=== PATIENT | male | born 1965 | race Caucasian/White ===

== ENCOUNTER → 2018-02-25 13:59 | Outpatient (CLI) | payer BC, SELFPAY ==
--- NOTE | 2018-02-25 14:29 | RAD_ITS ---
STUDY: X-RAY CHEST REASON FOR EXAM: Male, 53 years old. Chest pain TECHNIQUE: Frontal and lateral views of the chest were obtained. COMPARISON: May 21, 2016 FINDINGS: The lungs are underaerated. There are no focal airspace opacities. There is no demonstrated pleural abnormality. The cardiac silhouette is normal in size. There are surgical clips in the mediastinum. Sternotomy wires are present. Normal visualized pulmonary arteries. Normal visualized aortic arch and descending thoracic aorta. There are diffuse degenerative changes of the visualized spine. The visualized ribs, clavicles, and shoulders are unremarkable. There is no demonstrated abnormality of the visualized upper abdomen. RAD/Chest PA and Lateral IMPRESSION: No acute cardiopulmonary abnormalities or changes. Electronically Signed: Melinda Jaffe MD at 17:59 EDT Tel Direct: [phone], Service support ,
[2018-02-25 14:42] LABS: Absolute Lymphocyte Count 2.21 X10^3/ul (0.83-4.51); Absolute Neutrophil Count 2.5 X10^3/uL (2.0-7.7); Basophil# 0.04 X10^3/uL; Basophil% 0.8 % (0-1); Eosinophil# 0.13 X10^3/uL; Eosinophils% 2.4 % (0-5); Hematocrit 44.4 % (40-54); Hemoglobin 15.6 g/dl (13.0-16.5); Lymphocyte # 2.21 X10^3/ul (4.0); Lymphocyte % 41.5 % (19-41); Mean Corp Hgb Conc 35.1 g/gl (32-36); Mean Corpuscular Hgb 31.6 pg (27.0-32.0); Mean Corpuscular Volume 90.1 fL (80-94); Mean Platelet Vol. 9.8 fl (6.2-12.0); Monocyte# 0.48 X10^3/uL; Neutrophil # 2.47 X10^3/uL (2.7-7.7); Neutrophil % 46.3 % (47-70); POSITIVE COUNT NO; POSITIVE DIFFERENTIAL NO; POSITIVE MORPHOLOGY NO; Platelet Count 235 K/mm3 (150-450); RBC Distribution Width CV 12.9 % (11.6-14.6); RBC Distribution Width SD 41.9 fl (35.1-43.9); Red Blood Count 4.93 M/mm3 (4.6-6.2); White Blood Count 5.3 K/mm3 (4.4-11.0)
[2018-02-25 14:50] LABS: International Normalized Ratio 0.9; Partial Thromboplast Time 30.4 Seconds (24.1-36.2); Prothrombin Time (Protime)PT. 12.6 SECONDS (11.7-14.9)
[2018-02-25 14:58] LABS: Anion Gap 9 (5-15); BUN 17 mg/dL (7-18); BUN/Creat Ratio 15.5 RATIO (10-20); Calcium,Total 8.6 mg/dL (8.5-10.1); Chloride 104 mmol/L (98-107); EST Glomerular Filtration Rate 74 mL/min (>60); Est Glom Filt Rate - Afr Amer 90 mL/min (>60); Glucose 117 mg/dL (74-106); Potassium 3.5 mmol/L (3.5-5.1); Sodium Level 141 mmol/L (136-145)
--- NOTE | 2018-02-28 10:39 | CL.I_ITS ---
Patient Name: GALO JAMES Study Date: 02/28/2018 Performing: Jeremías Castillo MD Ht: 70 inches 177.8 cm : 1965 Wt: 203.3 lbs 92.079 kg Age: 53 Gender: male BSA: 2.1 PROCEDURE(S) PERFORMED CH93-RUU/COR/LV/CABG UN51-NUH W OR WO PTCA, SINGLE CORONARY ARTERY CLINICAL PROFILE AND CO-MORBIDITIES Indications: Stable Known CAD, Abnormal stress test, Dyspnea on exertion. Heart Failure: None Stress/Imaging Stress Echocardiogram: Yes Result: Positive Intermediate Risk Stress Echocardiogra m: Positive Intermediate Risk Angina Classification Anginal Classification w/in 2 Weeks: No symptoms CAD Presentations: Other: Dyspnea. Comorbidities/Risk Factors: Hypertension Dyslipidemia Prior CABG CONCLUSIONS Triple vessel CAD of the LAD, LCX, OMS, RCA Critical lesion in mid LCX that is supplying OM#1 and OM#2 via bridging radial artery. Widely patent sequential VILLATORO to LAD and DIAG. Widely patent BEBETO To PDA. Successful PTCA/DEISI of the mid LCX with a 3.0 x 12 Promus Synergy, post dilated to 3.75 mm with NC ba lloon; 85%-->0%, no dissection. RECOMMENDATIONS Referred for immediate PCI of mid LCX. Highly recommend quitting all tobacco products Follow up with primary frame assembler Risk factor modification ASA Indefinitley Plavix for at least 12 months Routine post interventional care Refer for Outpatient Cardiac Rehab Manual sheath removal per protocol Follow up with Dr. Casitllo DESCRIPTION OF PROCEDURE The patient arrived to the procedure lab. The risks and benefits of the procedure as well as a full d escription of our services here and lack of surgical backup were fully explained to the patient and/o r their significant other prior to the catheterization. The Timeout was completed, verifying the jayce ect patient and procedure. The patient's procedural site was prepped and draped in the usual fashion. Local anesthetic was given subcutaneously to right groin region with Lidocaine 2%. Using a modified Seldinger technique, arterial access was obtained via the right femoral artery, a 4Fr sheath was inse rted. Left Coronary Artery selective angiography was performed in multiple views using a 4 Fr. JL5 c atheter. Left internal mammary artery graft to the LAD selective angiography was performed in multipl e views using a 4 Fr. 3DRC catheter. Left internal mammary artery graft to the DIAG 1 selective angio graphy was performed in multiple views using a 4 Fr. 3DRC catheter. Right Coronary Artery selective a ngiography was then performed in multiple views using a 4 Fr. 3DRC catheter. Right internal mammary a rtery graft to the RPDA selective angiography was performed in multiple views using a 4 Fr. 3DRC cath eter. Saphenous Vein graft to the Circumflex selective angiography was performed in multiple views us ing a 4 Fr. AR MOD 2 catheter. Left Ventriculography was performed in BARKER projection using a 4 Fr. Pi gtail catheter. LV to AO pullback pressures were then recordedThe images were reviewed and options di scussed. A decision was then made to proceed with an Intervention, IVUS or other adjunct procedure. Arterial sheath was exchanged for a 6 Fr Sheath 3.5 EBU Guide catheter was inserted and engaged into the LCA. BMW Guide wire was advanced to the Circumflex. Guide wire was advanced to the 1st OM. 2X8 EM ERGE Balloon catheter was inserted. Balloon catheter was advanced across lesion in the circumflex, mi d. PTCA balloon inflated at 10 atms for 15 secs PTCA balloon inflated at 12 atms for 10 secs PTCA bal loon inflated at 12 atms for 8 secs Angiogram performed post balloon dilatation. PTCA balloon inflate d at 12 atms for 9 secs 3x12 synergy Drug Eluting stent was inserted Drug Eluting stent was advanced across the lesion in the circumflex, mid. Angiogram performed post stent deployment. 3.5x 8 NC Emerge Balloon catheter was inserted. 3.75x 8 NC emerge Balloon catheter was inserted. Balloon catheter was inserted post stent. PTCA balloon inflated at 16 atms for 12 secs PTCA balloon inflated at 12 atms f or 5 secs Angiogram performed post balloon dilatation.. . The arterial sheath was sutured in place a nd capped. CORONARY ANGIOGRAPHY DOMINANCE: Right Dominant LEFT HEART ASSESSMENT Left Ventricular Ejection Fraction: by LV Gram 65 % Normal Left Ventricular systolic function Normal Left Ventricular End Diastolic Pressure Normal LV wall motion LEFT MAIN: No significant disease noted LEFT ANTERIOR DECENDING ARTERY: MID LAD: is occluded DIAGONAL 1: Ostial - 70 % Stenosis CIRCUMFLEX ARTERY: MID CIRC: 85 % Stenosis RIGHT CORONARY ARTERY: MID RCA: is occluded GRAFTS: VILLATORO graft to the 2nd Diagonal and LAD(sequential) is patent Sequential radial graft to the 1st OM and OM#2 has a proximal anastomotic lesion of 99 %, but a paten t bridge anastomosis b/w OM#1 and OM#2. BEBETO graft to the RPDA is patent INTERVENTION INFORMATION LESION SITE: Circumflex (Mid) Lesion Complexity: Non-High/Non-C, lesion at bifurcation: Yes, thrombus present: No, lesion length: 1 2 mm, culprit lesion: Yes Pre Stenosis: 85 % Pre intervention BETTY flow: 3 PROCEDURE: Drug Eluting Stent with pre and post dilatation Post Stenosis: 0 % Post intervention BETTY flow: 3 Lesion Devices: Peña .014 BMW Delmar Straight 190cm Medtronic 6 Fr EBU3.5 100cm Guide Catheter Say Sci EMERGE MR 2.00x08 BALLOON Say Sci Synergy MR DEISI 3.00x12 Say Sci NC EMERGE MR 3.50x08 BALLOON Say Sci NC EMERGE MR 3.75x08 BALLOON COMPLICATIONS No Complications PROCEDURE MEDICATIONS Oxygen: 2 L/min via nasal cannula Atropine 1mg/10ml 0.5 amp @ 02/28/2018 09:50:38 Heparin 6000 unit(s) IV 02/28/2018 09:52:36 Nitro 200 mcg IC 02/28/2018 09:58:59 Nitro 200 mcg IC 02/28/2018 09:58:59 IV Fluids: .9 NaCl increased to WO ml/hr 02/28/2018 09:51:44 SUMMARY OF HEMODYNAMIC DATA Time AIR REST ECG 07:13:44 AO 163/95 (123) SA 09:32:42 LV 93/-9, 6 09:48:33 LV 92/-12, 7 09:48:41 LVp 98/-16, 5 09:48:56 AOp 92/51 (69) 09:49:01 Signed By Jeremías Castillo MD On 02/28/2018 10:38:40 Jeremías Castillo MD
== END ==
PROVIDERS: Visit Provider Internal Medicine Cardiovascular Disease
DX: I25.110 Atherosclerotic heart disease of native coronary artery with unstable angina pectoris (principal); Z95.1 Presence of aortocoronary bypass graft; E78.5 Hyperlipidemia, unspecified; I10 Essential (primary) hypertension; R07.9 Chest pain, unspecified
CPT/HCPCS: 36415; 71046; 80048; 85025; 85610; 85730

== ENCOUNTER 2018-02-28 06:55 | Day surgery (SDC) | payer BC, SELFPAY ==
[2018-02-27 07:34] VITALS: BMI 30.1
[2018-02-28] VITALS (18 sets, daily range): BP systolic 130–158; BP diastolic 89–104; PULSE 62–93; RESP 10–24; TEMP 36.2; O2SAT 95–99; BMI 29.7
[2018-02-28 10:31] LABS: ACT Activated Clotting Time 175 sec (74-137)
[2018-02-28] MEDS: 0.9% Normal Saline 1,000 ML 150 ML IV (11:03)
[2018-02-28 11:23] LABS: CPK Total, Creatine Kinase 248 U/L (39-308)
[2018-02-28 11:42] LABS: Hematocrit 42.2 % (40-54); Mean Corp Hgb Conc 35.5 g/gl (32-36); Mean Corpuscular Hgb 31.6 pg (27.0-32.0); Mean Platelet Vol. 9.7 fl (6.2-12.0); Platelet Count 216 K/mm3 (150-450); RBC Distribution Width CV 12.5 % (11.6-14.6); RBC Distribution Width SD 40.3 fl (35.1-43.9); Red Blood Count 4.74 M/mm3 (4.6-6.2); Scan Indicated on CBC? Y/N NO; White Blood Count 4.9 K/mm3 (4.4-11.0)
[2018-02-28] MEDS: Atropine Sulfate 1 MG/10 ML Syringe 0.5 MG IV (12:46)
[2018-02-28] MEDS: 0.9% NaCl Peripheral Flush Adult/Peds IV (12:46)
[2018-02-28 12:50] LABS: ACT Activated Clotting Time 125 sec (74-137)
--- NOTE | 2018-02-28 13:10 | CRPHASE1 ---
Patient Data/Charges Phase II Referral:: [facility] Start Phase II:: FOLLOWING CARDIOLOGY OFFICE VISIT Risk Factors/Lifestyle Hx Hypertension: Yes Hx Metabolic Disorders: Yes Hx Dyslipidemia: Yes Hx Obesity: No Height: 5 ft 10 in Stress: Home/Family Risk Factor for Sedentary Lifestyle: Moderate Risk Past Cardiac Illness: Coronary Artery Bypass Graft Phase I Education Given On:: [place], Nutrition, Antiplatelet medication Issues Affecting Care:: None Knowledge of Condition:: Yes Learning Preferences: Verbal Hospital Course Presenting Symptoms:: UNSTABLE ANGINA Medical/Surgical History MT:: No Angina:: Yes - UNSTABLE ANGINA Hypertension:: Yes Dyslipidemia:: Yes CABG: Yes Discharge/Home/Social Eval Discharge Disposition: Home
--- NOTE | 2018-02-28 13:13 | CRPHASE1_ITS ---
Patient Data/Charges Phase II Referral:: [facility] Start Phase II:: FOLLOWING CARDIOLOGY OFFICE VISIT Risk Factors/Lifestyle Hx Hypertension: Yes Hx Metabolic Disorders: Yes Hx Dyslipidemia: Yes Hx Obesity: No Height: 5 ft 10 in Stress: Home/Family Risk Factor for Sedentary Lifestyle: Moderate Risk Past Cardiac Illness: Coronary Artery Bypass Graft Phase I Education Given On:: [place], Nutrition, Antiplatelet medication Issues Affecting Care:: None Knowledge of Condition:: Yes Learning Preferences: Verbal Hospital Course Presenting Symptoms:: UNSTABLE ANGINA Medical/Surgical History NE:: No Angina:: Yes - UNSTABLE ANGINA Hypertension:: Yes Dyslipidemia:: Yes CABG: Yes Discharge/Home/Social Eval Discharge Disposition: Home
--- NOTE | 2018-02-28 13:13 | CRPH1.INSTRU ---
General Education CAD and cardiac anatomy and function:: Patient communicates acknowledgment Explanation of diagnoses and procedures:: Patient communicates acknowledgment Sign/Symptoms of [place]:: Patient communicates acknowledgment Antiplatelet therapy: Patient communicates acknowledgment Proper use of NTG-SL: Patient communicates acknowledgment Emergency procedures and activation of EMS: Patient communicates acknowledgment Compliance of all prescribed medications: Patient communicates acknowledgment Dyslipidemia Patient Dyslipidemia Risk Factors Are:: Total Cholesterol Recommendations Include:: Lipid profile not available, Reviewed NCEP/ATP guidelines, Therapeutic Lifestyle Change dietary guidelines Dyslipidemia Response Code:: Patient communicates acknowledgment Overweight/Obesity Patient Overweight/Obesity Risk Factors Are:: Overweight = 26-29 Recommendations Include:: Weight loss of 5-10%, Reduced calorie diet, Exercise 5-7 times/week Overweight/Obesity:: Patient communicates acknowledgment Hypertension Recommendations Include:: Maintain BP <130/85, DASH dietary guidelines, Decrease/maintain normal body weight, Moderation of ETOH Hypertension:: Patient communicates acknowledgment Heart Disease Patient Heart Disease Risk Factors Are:: Previous cardiac event Heart Disease Response Code:: Patient communicates acknowledgment Diabetes Patient Diabetes Risk Factors Are:: No documented hx of diabetes Metabolic Syndrome Patient Metabolic Syndrome Risk Factors Are [3 of 5]:: High triglyceride >150, Hypertension, Low HDL <40 [male] or < 50 [female] Recommendations Include:: Reinforce compliance to risk factor modifications, Encouraged follow-up with Primary Care Physician Metabolic Syndrome Response Code:: Patient communicates acknowledgment Sedentary Patient Sedentary Risk Factors Are:: Lack of regular exercise Recommendations Include:: Aerobic exercise 5-7 times/week for 20-30 minutes continuously, Benefits of regular exercise, Discussed home walking program, Monitored Outpatient Cardiac Rehab Sedentary Response Code:: Patient communicates acknowledgment Stress Recommendations Include:: Identification of stressors, and assessment of coping skills, Stress management techniques Stress Response Code:: Patient communicates acknowledgment
--- NOTE | 2018-02-28 13:16 | CRPH1.INST_ITS ---
General Education CAD and cardiac anatomy and function:: Patient communicates acknowledgment Explanation of diagnoses and procedures:: Patient communicates acknowledgment Sign/Symptoms of [place]:: Patient communicates acknowledgment Antiplatelet therapy: Patient communicates acknowledgment Proper use of NTG-SL: Patient communicates acknowledgment Emergency procedures and activation of EMS: Patient communicates acknowledgment Compliance of all prescribed medications: Patient communicates acknowledgment Dyslipidemia Patient Dyslipidemia Risk Factors Are:: Total Cholesterol Recommendations Include:: Lipid profile not available, Reviewed NCEP/ATP guidelines, Therapeutic Lifestyle Change dietary guidelines Dyslipidemia Response Code:: Patient communicates acknowledgment Overweight/Obesity Patient Overweight/Obesity Risk Factors Are:: Overweight = 26-29 Recommendations Include:: Weight loss of 5-10%, Reduced calorie diet, Exercise 5 -7 times/week Overweight/Obesity:: Patient communicates acknowledgment Hypertension Recommendations Include:: Maintain BP <130/85, DASH dietary guidelines, Decrease /maintain normal body weight, Moderation of ETOH Hypertension:: Patient communicates acknowledgment Heart Disease Patient Heart Disease Risk Factors Are:: Previous cardiac event Heart Disease Response Code:: Patient communicates acknowledgment Diabetes Patient Diabetes Risk Factors Are:: No documented hx of diabetes Metabolic Syndrome Patient Metabolic Syndrome Risk Factors Are [3 of 5]:: High triglyceride >150, Hypertension, Low HDL <40 [male] or < 50 [female] Recommendations Include:: Reinforce compliance to risk factor modifications, Encouraged follow-up with Primary Care Physician Metabolic Syndrome Response Code:: Patient communicates acknowledgment Sedentary Patient Sedentary Risk Factors Are:: Lack of regular exercise Recommendations Include:: Aerobic exercise 5-7 times/week for 20-30 minutes continuously, Benefits of regular exercise, Discussed home walking program, Monitored Outpatient Cardiac Rehab Sedentary Response Code:: Patient communicates acknowledgment Stress Recommendations Include:: Identification of stressors, and assessment of coping skills, Stress management techniques Stress Response Code:: Patient communicates acknowledgment
[2018-02-28 14:47] LABS: M R Staph aureus DNA By PCR Negative (Negative); Probe Check PASS; Specimen Processing Control PASS
[2018-02-28 17:16] LABS: Hematocrit 43.5 % (40-54); Hemoglobin 15.8 g/dl (13.0-16.5); Mean Corp Hgb Conc 36.3 g/gl (32-36); Mean Corpuscular Hgb 32.3 pg (27.0-32.0); Mean Platelet Vol. 9.8 fl (6.2-12.0); Platelet Count 229 K/mm3 (150-450); RBC Distribution Width CV 12.6 % (11.6-14.6); RBC Distribution Width SD 40.7 fl (35.1-43.9); Red Blood Count 4.89 M/mm3 (4.6-6.2); White Blood Count 6.1 K/mm3 (4.4-11.0)
[2018-02-28 17:17] LABS: Scan Indicated on CBC? Y/N NO
[2018-02-28 17:21] LABS: CPK Total, Creatine Kinase 210 U/L (39-308)
[2018-02-28 23:08] LABS: Hematocrit 42.3 % (40-54); Mean Corp Hgb Conc 35.5 g/gl (32-36); Mean Corpuscular Hgb 31.9 pg (27.0-32.0); Mean Platelet Vol. 10.2 fl (6.2-12.0); Platelet Count 242 K/mm3 (150-450); RBC Distribution Width SD 41.6 fl (35.1-43.9); White Blood Count 6.5 K/mm3 (4.4-11.0)
[2018-02-28 23:09] LABS: Scan Indicated on CBC? Y/N NO
[2018-03-01] VITALS (12 sets, daily range): BP systolic 136–167; BP diastolic 87–101; PULSE 58–81; RESP 12–20; TEMP 36.3–36.7; O2SAT 96–98
[2018-03-01 00:13] LABS: CPK Total, Creatine Kinase 193 U/L (39-308)
[2018-03-01] MEDS: 0.9% NaCl Peripheral Flush Adult/Peds IV (05:28)
[2018-03-01 05:54] LABS: Anion Gap 9 (5-15); BUN 15 mg/dL (7-18); Calcium,Total 8.4 mg/dL (8.5-10.1); Chloride 108 mmol/L (98-107); Cholesterol 154 mg/dL (200); EST Glomerular Filtration Rate 83 mL/min (>60); Est Glom Filt Rate - Afr Amer 101 mL/min (>60); Estimated Creatinine Clearance 88.21 ml/min; Glucose 118 mg/dL (74-106); High Density Lipoprotein 45 mg/dL; Potassium 3.9 mmol/L (3.5-5.1); Sodium Level 142 mmol/L (136-145); Triglycerides 81 mg/dL; Very Low Density Lipoprotein 16 mg/dL (5-40)
--- NOTE | 2018-03-01 05:55 | EKG12_ITS ---
Test Reason : POST PCI Blood Pressure : / mmHG Vent. Rate : 071 BPM Atrial Rate : 071 BPM P-R Int : 178 ms QRS Dur : 090 ms QT Int : 422 ms P-R-T Axes : 048 003 011 degrees QTc Int : 458 ms Normal sinus rhythm Confirmed by ISABELLA EDWARDS, MIKI ([id number]), communications editor TOMASA LEVY ([id number]) on 03/06/2018 1:54:49 PM Referred By: Jeremías Castillo Confirmed By:MIKI MASON MD
[2018-03-01 06:26] LABS: Hematocrit 44.8 % (40-54); Hemoglobin 16.1 g/dl (13.0-16.5); Mean Corp Hgb Conc 35.9 g/gl (32-36); Mean Corpuscular Hgb 32.2 pg (27.0-32.0); Mean Corpuscular Volume 89.6 fL (80-94); Mean Platelet Vol. 10.3 fl (6.2-12.0); Platelet Count 234 K/mm3 (150-450); RBC Distribution Width CV 12.7 % (11.6-14.6); RBC Distribution Width SD 41.4 fl (35.1-43.9); White Blood Count 7.4 K/mm3 (4.4-11.0)
[2018-03-01 06:28] LABS: Scan Indicated on CBC? Y/N NO
[2018-03-01] MEDS: Clopidogrel Bisulfate 75 MG Tablet PO (08:57)
[2018-03-01] MEDS: HYDROCHLOROTHIAZIDE 12.5 MG CAPSULE PO (08:57)
[2018-03-01] MEDS: Aspirin 81 MG TAB.CHEW PO (08:57)
--- NOTE | 2018-03-01 10:30 | EKG12_ITS ---
Test Reason : AM EKG Blood Pressure : / mmHG Vent. Rate : 062 BPM Atrial Rate : 062 BPM P-R Int : 184 ms QRS Dur : 092 ms QT Int : 434 ms P-R-T Axes : 020 006 015 degrees QTc Int : 440 ms Normal sinus rhythm Confirmed by ISABELLA EDWARDS, MIKI ([id number]), scientific publications editor TOMASA LEVY ([id number]) on 03/06/2018 1:54:33 PM Referred By: Jeremías Castillo Confirmed By:MIKI MASON MD
--- NOTE | 2018-03-01 10:49 | PCM.DC ---
- Discharge Diagnoses Current Active Problems: CAD s/p PCI Reason(s) for Visit for Discharge Instructions: CAD s/p PCI You will use the following diet at home:: Cardiac Your food should be the consistency of: Regular Discharge Activity: May Not Drive - May Not Drive until 03/03/2018, May Shower May resume sexual activity in: 2 weeks Weight Bearing Status: - - Avoid heavy exertional activity / weight bearing pending outpatient follow up appointment. Call your doctor if your incision/area has: Continuous Slow Oozing, Sudden Increased Bleeding, Increased Pain/ Swelling, Increased Redness, Foul Smelling Discharge, Swelling at the incision site Call your doctor if you observe: Fever of 101 or Higher, Shortness of breath, Dizziness, Fainting spells, Swelling in the ankles, Chest pain, Increased palpitations (irregular heartbeat), Calf discomfort, Uncontrolled pain Remove Dressing in (days):: 1 Cleanse incision/area with: Soap & Water Additional Instructions: [facility]: appointment: 03/17/18: Please contact the office ([phone]) to confirm appointment date and time. Allergies/Adverse Reactions: Allergies No Known Allergies Allergy (Verified 02/13/18 13:17) Medications to take at Discharge Simvastatin [Zocor] 20 mg PO QHS 05/09/16 nitroglycerin 0.4 mg sublingual tablet 0.4 mg SUBLINGUAL Q5-15M PRN #25 tab 11/13/17 potassium chloride ER 10 mEq tablet,extended release 10 meq PO QDAY #90 tab 01/23/18 hydrochlorothiazide 12.5 mg capsule 12.5 mg PO DAILY #30 cap 02/24/18 clopidogrel 75 mg tablet 75 mg PO QDAY #90 tab 02/28/18 Aspirin [Aspirin, Baby] 81 mg PO DAILYCM tab.chew 03/01/18 Hydrochlorothiazide 12.5 mg PO DAILY capsule 03/01/18 Primary Care Physician: Tejal Machado MD [Primary Care Provider] - Please Follow Up With: Jeremías Castillo MD When: [facility]: 03/17/18 Proposed Discharge Date: 03/01/18
--- NOTE | 2018-03-01 10:59 | DCINST_ITS ---
- Discharge Diagnoses Current Active Problems: CAD s/p PCI Reason(s) for Visit for Discharge Instructions: CAD s/p PCI You will use the following diet at home:: Cardiac Your food should be the consistency of: Regular Discharge Activity: May Not Drive - May Not Drive until 03/03/2018, May Shower May resume sexual activity in: 2 weeks Weight Bearing Status: - - Avoid heavy exertional activity / weight bearing pending outpatient follow up appointment. Call your doctor if your incision/area has: Continuous Slow Oozing, Sudden Increased Bleeding, Increased Pain/ Swelling, Increased Redness, Foul Smelling Discharge, Swelling at the incision site Call your doctor if you observe: Fever of 101 or Higher, Shortness of breath, Dizziness, Fainting spells, Swelling in the ankles, Chest pain, Increased palpitations (irregular heartbeat), Calf discomfort, Uncontrolled pain Remove Dressing in (days):: 1 Cleanse incision/area with: Soap & Water Additional Instructions: [facility]: appointment: 03/17/18: Please contact the office ([phone]) to confirm appointment date and time. Allergies/Adverse Reactions: Allergies No Known Allergies Allergy (Verified 02/13/18 13:17) Medications to take at Discharge Simvastatin [Zocor] 20 mg PO QHS 05/09/16 nitroglycerin 0.4 mg sublingual tablet 0.4 mg SUBLINGUAL Q5-15M PRN #25 tab 01/26 potassium chloride ER 10 mEq tablet,extended release 10 meq PO QDAY #90 tab hydrochlorothiazide 12.5 mg capsule 12.5 mg PO DAILY #30 cap 02/24/18 clopidogrel 75 mg tablet 75 mg PO QDAY #90 tab 02/28/18 Aspirin [Aspirin, Baby] 81 mg PO DAILYCM tab.chew 03/01/18 Hydrochlorothiazide 12.5 mg PO DAILY capsule 03/01/18 Primary Care Physician: Tejal Machado MD [Primary Care Provider] - Please Follow Up With: Jeremías Castillo MD When: [facility]: 03/17/18 Proposed Discharge Date: 03/01/18
--- NOTE | 2018-03-01 10:59 | PCM.DC.SUM ---
Discharge Date and Diagnosis Date of Admission: 02/28/18 Date of Discharge: 03/01/18 - Primary Discharge Diagnosis CAD s/p PCI - Secondary Discharge Diagnosis Chronic Problems (Last Updated 02/28/18 @ 13:24 by BETH Yi) Chest pain (Chronic) HTN (hypertension) (Chronic) Atherosclerotic heart disease of [place] coronary artery with unstable angina pectoris (Chronic) 03/16/2016 CABG x5 vessels: Complex VILLATORO LAD, bridge diagonal, sequential radial to the posterolateral CX, bridge lateral CX, BEBETO to the PDA, Stent to Circ 02/2018 H/O coronary artery bypass surgery (Chronic) 03/16/2016 CABG x5 vessels: Complex VILLATORO LAD, bridge diagonal, sequential radial to the posterolateral CX, bridge lateral CX, BEBETO to the PDA at [facility] in [place], [place] per Dr. Chen. HLD (hyperlipidemia) (Chronic) HTN (hypertension) (Chronic) Hypokalemia (Chronic) Hospital Course and Treatment Operations: None Procedures: Cardiac catheterization, - - PTCA/STENT/DEISI Summary of Care Provided: The patient is a 53 year old white male with a past medical history of underlying CAD, CABG, who presented to [facility] on 02/28/2018 under the direction of Jeremías Castillo MD for further cardiovascular evaluation and subsequent PTCA/stent/DEISI. The patient underwent diagnostic cardiac catheterization on 02/28/2018. He was noted to have underlying multivessel disease with angiographically significant disease in the LCx system supplying OM1 and OM 2 with subsequent notation of a patent VILLATORO to the LAD/diagonal branch and a patent BEBETO to the PDA. The patient subsequently underwent PTCA/stent/DEISI of the mid LCx system with a 3.0?12.0 Promus Synergy drug-eluting stent. The patient was monitored in the ICU overnight. Patient remained symptomatically and hemodynamically stable. On 03/01/2018 the patient was felt stable for discharge home for continued outpatient cardiovascular follow-up. [] Discharge Diet: Low fat/ Low Cholesterol Discharge Activity: May Not Drive - May Not Drive until 03/03/2018, May Shower May resume sexual activity in: 2 weeks Weight Bearing Status: - - Avoid heavy exertional activity / weight bearing pending outpatient follow up appointment. Call your doctor if your incision/area has: Continuous Slow Oozing, Sudden Increased Bleeding, Increased Pain/ Swelling, Increased Redness, Foul Smelling Discharge, Swelling at the incision site Call your doctor if you observe: Fever of 101 or Higher, Shortness of breath, Dizziness, Fainting spells, Swelling in the ankles, Chest pain, Increased palpitations (irregular heartbeat), Calf discomfort, Uncontrolled pain Remove Dressing in (days):: 1 Cleanse incision/area with: Soap & Water Home Medications: Medications to take at Discharge Simvastatin [Zocor] 20 mg PO QHS 05/09/16 nitroglycerin 0.4 mg sublingual tablet 0.4 mg SUBLINGUAL Q5-15M PRN #25 tab 11/13/17 potassium chloride ER 10 mEq tablet,extended release 10 meq PO QDAY #90 tab 01/23/18 hydrochlorothiazide 12.5 mg capsule 12.5 mg PO DAILY #30 cap 02/24/18 clopidogrel 75 mg tablet 75 mg PO QDAY #90 tab 02/28/18 Aspirin [Aspirin, Baby] 81 mg PO DAILYCM tab.chew 03/01/18 Hydrochlorothiazide 12.5 mg PO DAILY capsule 03/01/18 Primary Care Physician: Tejal Machado MD [Primary Care Provider] - Please Follow Up With: Jeremías Castillo MD When: [facility]: 03/17/18 Disposition: Home Patient Condition:: Stable Medical Necessity - Tobacco Use Smoking Status: Never smoker Tobacco Use: Non-smoker Meaningful Use Info Meaningful Use Diagnoses (Choose all that apply): None applicable
--- NOTE | 2018-03-01 11:03 | DS.PCM_ITS ---
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 in [place], [place] per Dr. Chen. HLD (hyperlipidemia) (Chronic) HTN (hypertension) (Chronic) Hypokalemia (Chronic) Hospital Course and Treatment Operations: None Procedures: Cardiac catheterization, - - PTCA/STENT/DEISI Summary of Care Provided: The patient is a 53 year old white male with a past medical history of underlying CAD, CABG, who presented to [facility] on 02/28/2018 under the direction of Jeremías Castillo MD for further cardiovascular evaluation and subsequent PTCA/stent/DEISI. The patient underwent diagnostic cardiac catheterization on 02/28/2018. He was noted to have underlying multivessel disease with angiographically significant disease in the LCx system supplying OM1 and OM 2 with subsequent notation of a patent VILLATORO to the LAD/diagonal branch and a patent BEBETO to the PDA. The patient subsequently underwent PTCA/stent/DEISI of the mid LCx system with a 3.0? 12.0 Promus Synergy drug-eluting stent. The patient was monitored in the ICU overnight. Patient remained symptomatically and hemodynamically stable. On 03/01/2018 the patient was felt stable for discharge home for continued outpatient cardiovascular follow-up. [] Discharge Diet: Low fat/ Low Cholesterol Discharge Activity: May Not Drive - May Not Drive until 03/03/2018, May Shower May resume sexual activity in: 2 weeks Weight Bearing Status: - - Avoid heavy exertional activity / weight bearing pending outpatient follow up appointment. Call your doctor if your incision/area has: Continuous Slow Oozing, Sudden Increased Bleeding, Increased Pain/ Swelling, Increased Redness, Foul Smelling Discharge, Swelling at the incision site Call your doctor if you observe: Fever of 101 or Higher, Shortness of breath, Dizziness, Fainting spells, Swelling in the ankles, Chest pain, Increased palpitations (irregular heartbeat), Calf discomfort, Uncontrolled pain Remove Dressing in (days):: 1 Cleanse incision/area with: Soap & Water Home Medications: Medications to take at Discharge Simvastatin [Zocor] 20 mg PO QHS 05/09/16 nitroglycerin 0.4 mg sublingual tablet 0.4 mg SUBLINGUAL Q5-15M PRN #25 tab 01/26 potassium chloride ER 10 mEq tablet,extended release 10 meq PO QDAY #90 tab hydrochlorothiazide 12.5 mg capsule 12.5 mg PO DAILY #30 cap 02/24/18 clopidogrel 75 mg tablet 75 mg PO QDAY #90 tab 02/28/18 Aspirin [Aspirin, Baby] 81 mg PO DAILYCM tab.chew 03/01/18 Hydrochlorothiazide 12.5 mg PO DAILY capsule 03/01/18 Primary Care Physician: Tejal Machado MD [Primary Care Provider] - Please Follow Up With: Jeremías Castillo MD When: [facility]: 03/17/18 Disposition: Home Patient Condition:: Stable Medical Necessity - Tobacco Use Smoking Status: Never smoker Tobacco Use: Non-smoker Meaningful Use Info Meaningful Use Diagnoses (Choose all that apply): None applicable
== END 2018-03-01 11:10 | disposition home or self-care (01) ==
LOC: CLSP 06:59 → ICU 10:06
PROVIDERS: Family Provider Internal Medicine; PCP Internal Medicine; Visit Provider Internal Medicine Cardiovascular Disease
DX: I25.10 Atherosclerotic heart disease of native coronary artery without angina pectoris (principal); I10 Essential (primary) hypertension; E78.00 Pure hypercholesterolemia, unspecified; E87.6 Hypokalemia; Z95.1 Presence of aortocoronary bypass graft
CPT/HCPCS: 80048; 80061; 82550; 85027; 85347; 87641; 92928; 93005; 93459; J7030; Q9967; A4216; C1725; C1769; C1874; C1887; C1894; C9600

== ENCOUNTER → 2018-12-29 09:42 | Outpatient (CLI) | payer BC, SELFPAY ==
[2018-10-24 10:26] VITALS: BMI 29.7
[2018-12-29 10:41] LABS: AST(SGOT) 27 U/L (15-37); Alanine Aminotransfer ALT/SGPT 44 U/L (16-61); Albumin, Serum 3.8 g/dL (3.2-5.0); Alkaline Phosphatase 58 U/L (45-117); Bilirubin, Direct 0.17 mg/dL (0.00-0.30); Cholesterol 171 mg/dL (200); Globulin 3.4 g/dL (2.2-4.2); High Density Lipoprotein 42 mg/dL; Protein, Total 7.2 g/dL (6.4-8.2); Triglycerides 265 mg/dL; Very Low Density Lipoprotein 53 mg/dL (5-40)
== END ==
PROVIDERS: Family Provider Internal Medicine; PCP Internal Medicine; Referring Provider Internal Medicine Cardiovascular Disease; Visit Provider Internal Medicine Cardiovascular Disease
DX: I25.10 Atherosclerotic heart disease of native coronary artery without angina pectoris (principal); Z95.5 Presence of coronary angioplasty implant and graft; Z95.1 Presence of aortocoronary bypass graft; E78.5 Hyperlipidemia, unspecified
CPT/HCPCS: 36415; 80061; 80076

== ENCOUNTER 2019-02-06 18:18 | Observation (INO) | payer BC, SELFPAY ==
[2018-10-24 10:26] VITALS: BMI 29.7
[2019-02-06] VITALS (8 sets, daily range): BP systolic 137–204; BP diastolic 76–115; PULSE 59–92; RESP 16–17; TEMP 36.7–36.9; O2SAT 96–98; BMI 30.4; BMI 29.6; BMI 29.7
--- NOTE | 2019-02-06 18:26 | EKG12_ITS ---
Test Reason : REPEAT Blood Pressure : / mmHG Vent. Rate : 070 BPM Atrial Rate : 070 BPM P-R Int : 168 ms QRS Dur : 088 ms QT Int : 410 ms P-R-T Axes : 030 000 -03 degrees QTc Int : 442 ms Normal sinus rhythm Normal ECG Confirmed by ISABELLA EDWARDS, MIKI ([id number]), writer editor [employer] ([id number]) on 02/09/2019 1:56:22 PM Referred By: Yousuf Camargo Confirmed By:MIKI MASON MD
--- NOTE | 2019-02-06 18:26 | RAD_ITS ---
STUDY: X-RAY CHEST REASON FOR EXAM: Male, 53 years old. Chest tightness and pressure. TECHNIQUE: 1 view COMPARISON: Prior chest radiograph February 25, 2018. FINDINGS: The lungs are clear and expanded. There is no demonstrated pleural abnormality. Normal size heart. Status post prior midline sternotomy. Normal visualized pulmonary arteries. Normal visualized aortic arch and descending thoracic aorta. Normal visualized ribs, clavicles, and shoulders. There is no demonstrated abnormality of the visualized soft tissue structures of the upper abdomen. RAD/Chest 1 View (Portable) IMPRESSION: No acute cardiopulmonary findings or changes. Negative for new consolidation, focal atelectasis, cardiomegaly or pleural effusion. Electronically Signed: Kellie Valenzuela MD at 18:45 EDT , Service support ,
[2019-02-06 19:00] LABS: BUN 17 mg/dL (7-18); Creatinine, Serum 1.19 mg/dL (0.70-1.30); Estimated Creatinine Clearance 74.12 ml/min; Glucose 139 mg/dL (74-106)
[2019-02-06 19:01] LABS: Anion Gap 9 (5-15); BUN/Creat Ratio 14.3 RATIO (10-20); Calcium,Total 8.7 mg/dL (8.5-10.1); Chloride 103 mmol/L (98-107); EST Glomerular Filtration Rate 68 mL/min (>60); Est Glom Filt Rate - Afr Amer 82 mL/min (>60); Potassium 3.4 mmol/L (3.5-5.1); Sodium Level 140 mmol/L (136-145)
--- NOTE | 2019-02-06 19:09 | ED.VISSUMM ---
- ER Visit Summary Date of Service: 02/06/19 Chief Complaint: Chest pain History of Present Illness: The patient is a 53 M who presents for 3 hours of chest pain. Patient describes it as a constant uncomfortable pressure under the lower bilateral anterior chest. It is improved and worsened by nothing. Patient has no associated nausea, vomiting, shortness of breath or diaphoresis. No cough or congestion, no fever. Patient took a baby aspirin today. He did not take any nitroglycerin. He has an extensive cardiac history including a quintuple bypass and stent placement. Also hypertension and high cholesterol. Physical Examination: Vital signs: afebrile, hemodynamically stable, no hypoxia on room air General: well nourished, well developed, in no distress Skin: warm, dry, no rash, no pallor HEENT: normocephalic and atraumatic; PERRL, EOMI, moist mucous membranes Cardiovascular: regular rate and rhythm without murmurs, no peripheral edema, 2+ pulses all distal extremities Respiratory: No increased work of breathing, lungs are clear to auscultation bilaterally, no rales, rhonchi or wheezing Abdominal: Abdomen is soft, nontender with normoactive bowel sounds, no guarding or rebound, no masses MSK: Moves all extremities, no deformities, normal strength Neuro: Awake and alert, oriented ?4. No facial droop, sensation and motor function intact and symmetric Test Results: Abnormal Lab Results 02/06/19 02/06/19 18:26 18:26 WBC 6.4 RBC 4.90 Hgb 16.0 Hct 44.2 MCV 90.2 MCH 32.7 H MCHC 36.2 H RDW 12.4 RDW Differential 40.8 Plt Count 248 MPV 9.9 Immature Gran % (Auto) 0.200 Neut % (Auto) 51.8 Lymph % (Auto) 36.4 [place] % (Auto) 9.3 Eos % (Auto) 1.7 Baso % (Auto) 0.6 Absolute Neuts (auto) 3.3 Absolute Lymphs (auto) 2.32 Total Counted Not Reportable Sodium 140 Potassium 3.4 L Chloride 103 Carbon Dioxide 28.0 Anion Gap 9 BUN 17 Creatinine 1.19 Estim Creat Clear Calc 74.12 Est GFR (MDRD) Af Amer 82 Est GFR (MDRD) Non-Af 68 BUN/Creatinine Ratio 14.3 Glucose 139 H Calcium 8.7 Troponin I < 0.015 Clinical Impression(s) from Imaging Studies Chest X-Ray 02/06/19 18:26 IMPRESSION: No acute cardiopulmonary findings or changes. Negative for new consolidation, focal atelectasis, cardiomegaly or pleural effusion. Electronically Signed: Kellie Valenzuela MD at 18:45 EDT , Service support , Medications Given Aspirin (Aspirin, Baby) 243 mg PO X1 STA Stop: 02/06/19 19:07 Last Admin: 02/06/19 19:19 Dose: 243 mg Morphine Sulfate () 4 mg IV X1 ONE Stop: 02/06/19 19:40 Last Admin: 02/06/19 19:51 Dose: 4 mg Nitroglycerin (Nitrostat) 0.4 mg SUBLINGUAL Q5M BLAYNE Stop: 02/06/19 19:26 Last Admin: 02/06/19 19:51 Dose: 0.4 mg Admin: 02/06/19 19:50 Dose: 0.4 mg Admin: 02/06/19 19:20 Dose: 0.4 mg Emergency Department Course and Treatment: Patient presents with concerning complaint of diffuse chest pressure and has significant cardiac history. Patient was given aspirin and nitroglycerin. He had no improvement with nitroglycerin and continue to have significant discomfort. He was given morphine IV. EKG showed sinus rhythm without any ischemic changes. Troponin was negative. Labs otherwise unremarkable. Because patient continued to have chest discomfort, a repeat EKG was performed and it was unchanged from the initial one. Patient was admitted to the hospitalist for further chest pain workup in a patient at high risk for acute coronary syndrome and was significant cardiac history. Treatment Plan: [] Disposition: [] Impression: Chest pain, history of coronary artery disease This note was generated with [employer] dictation software. It may contain incorrect words, spelling, and punctuation that were not noted in review of the chart prior to signing ED Disposition - Plan for ED Patient: Disposition: Acute [facility]
[2019-02-06 19:13] LABS: Absolute Lymphocyte Count 2.32 X10^3/ul (0.83-4.51); Absolute Neutrophil Count 3.3 X10^3/uL (2.0-7.7); Basophil# 0.04 X10^3/uL; Basophil% 0.6 % (0-1); Eosinophil# 0.11 X10^3/uL; Eosinophils% 1.7 % (0-5); Hematocrit 44.2 % (40-54); Lymphocyte # 2.32 X10^3/ul (4.0); Lymphocyte % 36.4 % (19-41); Mean Corp Hgb Conc 36.2 g/gl (32-36); Mean Corpuscular Hgb 32.7 pg (27.0-32.0); Mean Corpuscular Volume 90.2 fL (80-94); Mean Platelet Vol. 9.9 fl (6.2-12.0); Monocyte# 0.59 X10^3/uL; Monocyte% 9.3 % (0-10); Neutrophil % 51.8 % (47-70); POSITIVE COUNT NO; POSITIVE DIFFERENTIAL NO; POSITIVE MORPHOLOGY NO; Platelet Count 248 K/mm3 (150-450); RBC Distribution Width CV 12.4 % (11.6-14.6); RBC Distribution Width SD 40.8 fl (35.1-43.9); White Blood Count 6.4 K/mm3 (4.4-11.0)
[2019-02-06] MEDS: Aspirin 81 MG TAB.CHEW 243 MG PO (19:19)
--- NOTE | 2019-02-06 19:40 | EKG12_ITS ---
Test Reason : CP Blood Pressure : / mmHG Vent. Rate : 071 BPM Atrial Rate : 071 BPM P-R Int : 172 ms QRS Dur : 092 ms QT Int : 404 ms P-R-T Axes : 004 002 010 degrees QTc Int : 439 ms Normal sinus rhythm Minimal voltage criteria for LVH, may be normal variant Borderline ECG Confirmed by ISABELLA EDWARDS, MIKI ([id number]), school photograph editor [employer] ([id number]) on 02/09/2019 1:57:00 PM Referred By: Yousuf Camargo Confirmed By:MIKI MASON MD
[2019-02-06] MEDS: Morphine 4 MG/ML Syringe IV (19:51)
--- NOTE | 2019-02-06 20:54 | NURSING ---
Patient to room, at bedside, denies pain or needs at this time.
--- NOTE | 2019-02-06 21:04 | EKG12_ITS ---
Test Reason : CP REPEAT Blood Pressure : / mmHG Vent. Rate : 060 BPM Atrial Rate : 060 BPM P-R Int : 176 ms QRS Dur : 090 ms QT Int : 418 ms P-R-T Axes : 009 -01 -01 degrees QTc Int : 418 ms Normal sinus rhythm Minimal voltage criteria for LVH, may be normal variant Borderline ECG Confirmed by ISABELLA EDWARDS, MIKI ([id number]), publishing editor [employer] BONILLA ([id number]) on 02/16/2019 11:55:41 AM Referred By: Yousuf Camargo Confirmed By:MIKI MASON MD
--- NOTE | 2019-02-06 21:20 | HP.PCM_ITS ---
Problem List (1) Chest pain Status: Acute Qualifiers: Chest pain type: precordial pain Qualified Code(s): R07.2 - Precordial pain History of Present Illness Date of Admission: 02/06/19 Chief Complaint: Chest pain The patient is a 53 year old M was seen in the emergency room at [facility] with a chief complaint of precordial chest pain over his lower chest area which he describes as pressure-like in nature starting approximately 415 tonight when he was seated watching TV. Patient denies any radiation into his jaw neck or arm, he denies any radiation into his back, he denies any nausea or vomiting. Patient has a past history of coronary artery disease with coronary artery bypass in the past and most recently stent placement. 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 Castillo. Patient states that his chest discomfort was 9 out of 10 with 10 being the most severe, since he has been in the emergency room his chest pain has resolved. Workup in the emergency room included a chest x-ray which was unremarkable, patient's labs were remarkable for a potassium of 3.4, glucose was 139. Patient's troponin was normal. EKG showed a normal sinus rhythm without any evidence of ischemic changes. Patient will be placed in observation status on PCU, enzymes will be cycled, he will undergo an exercise nuclear stress test tomorrow if his enzymes remain normal. Past Medical History Past Medical History (Chronic Problems): Chronic Problems (Last Reviewed 10/24/18 @ 10:19 by Dulce Maria Ruffin) Atherosclerosis of coronary artery of [place] heart without angina pectoris (Chronic) PTCA/DEISI of the mid LCX w/ 3.0 x 12 mm Promus Synergy 02/28/18 03/16/2016 CABG x5 vessels: Complex VILLATORO LAD, bridge diagonal, sequential radial to the posterolateral CX, bridge lateral CX, BEBETO to the PDA, History of coronary artery stent placement (Chronic 02/28/18) PTCA/DEISI of the mid LCX w/ 3.0 x 12 mm Promus Synergy 02/28/18 HTN (hypertension) (Chronic) H/O coronary artery bypass surgery (Chronic) 03/16/2016 CABG x5 vessels: Complex VILLATORO LAD, bridge diagonal, sequential radial to the posterolateral CX, bridge lateral CX, BEBETO to the PDA at [facility] in [place], Dr. Chen. HLD (hyperlipidemia) (Chronic) Medical History: Medical History (Last Reviewed 10/24/18 @ 10:19 by Dulce Maria Ruffin) HTN (hypertension) (Chronic) I10 HLD (hyperlipidemia) (Chronic) E78.5 Acute respiratory failure with hypoxia (Resolved) J96.01 Atelectasis (Resolved) J98.11 Pleural effusion in other conditions classified elsewhere (Resolved) J91.8 Pneumothorax on left (Resolved) J93.9 Allergies No Known Allergies Allergy (Verified 02/06/19 18:19) Home Medications: Ambulatory Orders Medication Instructions Recorded nitroglycerin 0.4 mg sublingual 0.4 mg SUBLINGUAL Q5-15M PRN #25 11/13/17 tablet tab Aspirin [Aspirin, Baby] 81 mg PO DAILY 02/06/19 Clopidogrel Bisulfate [Clopidogrel] 75 mg PO DAILY 02/06/19 Potassium Chloride [K-Tab ER] 10 meq PO DAILY 02/06/19 Simvastatin [Zocor] 20 mg PO QHS 02/06/19 hydroCHLOROthiazide 12.5 mg PO DAILY 02/06/19 [Hydrochlorothiazide] Surgical History: Surgical History (Last Updated 10/24/18 @ 10:23 by Dulce Maria Ruffin) History of coronary artery stent placement (Chronic) Onset Date: 02/28/18 Z95.5 PTCA/DEISI of the mid LCX w/ 3.0 x 12 mm Promus Synergy 02/28/18 H/O coronary artery bypass surgery (Chronic) Z95.1 03/16/2016 CABG x5 vessels: Complex VILLATORO LAD, bridge diagonal, sequential radial to the posterolateral CX, bridge lateral CX, BEBETO to the PDA at [facility] in [place]. Gustavo Bowen. History of left heart catheterization (LHC) Z98.890 03/15/2016 left elbow surgery Surgical History: - - 30 years ago Left elbow surgery. Lives: Spouse/ Significant Other Smoking Status: Unknown if ever smoked Tobacco Use: Non-smoker Alcohol: Rare Drugs: None - *Family History Maternal History Items: - - denies heart history Paternal History Items: - - denies heart history Review of Systems Constitutional: Denies: Anorexia, Chills, Fever, Night Sweats, Malaise, Weakness, Weight Change, Fatigue Eyes: Denies: Cataracts, Conjunctivae Inflammation, Double vision, Drainage HEENT: Denies: Dysphasia, Ear Pain, Eye Pain, Hearing Changes, Nasal bleeding, Nasal Congestion, Post Nasal Drip Cardiovascular: Reports: Chest Pain, Chest Pressure. Denies: Claudication, Chest Tightness, Edema, Heaviness, Orthopnea, Palpitations, Paroxysmal Noc. Dyspnea, Syncope Respiratory: Denies: Cough, Hemoptysis, Pleuritic Pain, Shortness of Breath, Shortness of breath at rest, Shortness of breath upon exertion, Sputum production, Wheezing Gastrointestinal: Denies: Abdominal Pain, Constipation, Diarrhea, Hematemesis, Hematochezia, Nausea, Melena, Vomiting Genitourinary: Denies: Dysuria, Frequency, Hematuria, Hesitancy, Urgency Musculoskeletal: Denies: Back Pain, Foot Pain, Hand Pain, Joint Pain, Joint stiffness, Joint swelling, Joint Tenderness, Leg Pain Skin: Denies: Dryness, Pruritis, Rash Neurological: Denies: Blurred vision, Double vision, Change in Speech, Slurred speech, Difficulty swallowing, Focal weakness, Headaches, Incoordination, Numbness, Tingling Psychiatric: Denies: Anxiety, Depression, Homicidal Ideations, Suicidal Ideations Endocrine: Denies: Change in Body Habitus, Heat/ Cold Intolerance, Polydipsia, Polyuria Hematologic/ Lymphatic: Denies: Adenopathy, Anemia, Easy Bruising, Easy Bleeding, Petechiae, Purpura VTE Information - Inpt Only VTE Present on Admission: No VTE Mechan Device Prophylaxis: None VTE Pharm Prophylaxis ordered?: Yes Patient Problems: Active and Suspected Problems (Last Reviewed 10/24/18 @ 10:19 by Dulce Maria Ruffin) Chest pain (Acute) - Physical Exam General: Alert, Oriented x3, Cooperative, No apparent distress, Well developed, Well nourished HEENT: Atraumatic, PERRLA, EOMI, Normocephalic Neck: Supple, No JVD, Negative Carotid Bruits, No Nuchal Rigidity, Trachea Midline, Thyroid Normal Size and Texture Lungs: Clear to auscultation, Normal air movement, No rhonchi, No wheeze, No rales Cardiovascular: Regular rate, Regular Rhythm, Normal S1, Normal S2, No murmurs, No Ectopic Activity, PMI Normal, No rub noted, No Gallop Abdomen: Bowel Sounds Present, Soft, Non Tender, Non-Distended, No hernias noted Extremities: No clubbing, No cyanosis, No edema, Capillary Refill Less than 3 Seconds Skin: No rashes, No breakdown Musculoskeletal: No Tenderness to Palpation of Joints or Extremities Neurological: Cranial nerves II-XII grossly intact, Neuro grossly intact, Muscle tone normal, Sensory exam intact to light touch and pain Psych/Mental Status: Normal Affect, Appropriate, Alert and oriented to time, place, person, mood and affect Vital Signs Temp Pulse Resp BP Pulse Ox 98.4 F 69 16 150/76 H 98 02/06/19 20:47 02/06/19 20:47 02/06/19 20:47 02/06/19 20:47 02/06/19 20:47 Oxygen Flow Rate (L/min) 1 Oxygen Delivery Method Nasal Cannula Weight: 96.1 kg Body Mass Index (BMI) 30.4 Finger Stick Blood Glucose 146 Laboratory Tests Past 24 Hrs 02/06/19 02/06/19 18:26 18:26 WBC 6.4 RBC 4.90 Hgb 16.0 Hct 44.2 MCV 90.2 MCH 32.7 H MCHC 36.2 H RDW 12.4 RDW Differential 40.8 Plt Count 248 MPV 9.9 Immature Gran % (Auto) 0.200 Neut % (Auto) 51.8 Lymph % (Auto) 36.4 [place] % (Auto) 9.3 Eos % (Auto) 1.7 Baso % (Auto) 0.6 Absolute Neuts (auto) 3.3 Absolute Lymphs (auto) 2.32 Total Counted Not Reportable Sodium 140 Potassium 3.4 L Chloride 103 Carbon Dioxide 28.0 Anion Gap 9 BUN 17 Creatinine 1.19 Estim Creat Clear Calc 74.12 Est GFR (MDRD) Af Amer 82 Est GFR (MDRD) Non-Af 68 BUN/Creatinine Ratio 14.3 Glucose 139 H Calcium 8.7 Troponin I < 0.015 Assessment/Plan All Active Problems (Last Reviewed 10/24/18 @ 10:19 by Dulce Maria Ruffin) Chest pain (Acute) Acute respiratory failure with hypoxia (Resolved) Atelectasis (Resolved) Chest pain (Resolved) Pleural effusion in other conditions classified elsewhere (Resolved) Pneumothorax on left (Resolved) #1 precordial chest pain in a patient with known coronary artery disease-patient will be placed in observation status on PCU, enzymes will be cycled, patient will undergo an exercise nuclear stress test tomorrow if his enzymes remain normal. #2 hypokalemia-this is mild, patient will be given potassium supplementation #3 hypertension #4 hyperlipidemia Code Visit OBSV E&M: [id number] Initial observation care L3
[2019-02-06] MEDS: Heparin Injection (Vial) 5,000 UNIT/ML VIAL 5000 UNIT SC (21:51)
[2019-02-06] MEDS: Atorvastatin Calcium 10 MG Tablet PO (21:51)
[2019-02-07] VITALS (7 sets, daily range): BP systolic 143–149; BP diastolic 87–92; PULSE 57–72; RESP 16; TEMP 36.4–36.8; O2SAT 99–100
[2019-02-07 02:25] LABS: Absolute Lymphocyte Count 1.53 X10^3/ul (0.83-4.51); Absolute Neutrophil Count 3.4 X10^3/uL (2.0-7.7); Basophil# 0.03 X10^3/uL; Basophil% 0.5 % (0-1); Eosinophil# 0.06 X10^3/uL; Eosinophils% 1.1 % (0-5); Hematocrit 41.6 % (40-54); Hemoglobin 15.2 g/dl (13.0-16.5); Lymphocyte # 1.53 X10^3/ul (4.0); Mean Corp Hgb Conc 36.5 g/gl (32-36); Mean Corpuscular Hgb 32.3 pg (27.0-32.0); Mean Corpuscular Volume 88.5 fL (80-94); Mean Platelet Vol. 9.6 fl (6.2-12.0); Monocyte# 0.47 X10^3/uL; Monocyte% 8.6 % (0-10); Neutrophil # 3.37 X10^3/uL (2.7-7.7); Neutrophil % 61.6 % (47-70); Platelet Count 214 K/mm3 (150-450); RBC Distribution Width CV 11.8 % (11.6-14.6); RBC Distribution Width SD 37.7 fl (35.1-43.9); White Blood Count 5.5 K/mm3 (4.4-11.0)
[2019-02-07 02:26] LABS: POSITIVE COUNT NO; POSITIVE DIFFERENTIAL NO; POSITIVE MORPHOLOGY NO
[2019-02-07 02:32] LABS: Prothrombin Time (Protime)PT. 13.3 SECONDS (11.7-14.9)
[2019-02-07 02:33] LABS: Partial Thromboplast Time 29.6 Seconds (24.1-36.2)
[2019-02-07 02:42] LABS: Anion Gap 5 (5-15); BUN 14 mg/dL (7-18); BUN/Creat Ratio 13.7 RATIO (10-20); Calcium,Total 8.4 mg/dL (8.5-10.1); Chloride 107 mmol/L (98-107); Creatinine, Serum 1.02 mg/dL (0.70-1.30); EST Glomerular Filtration Rate 81 mL/min (>60); Est Glom Filt Rate - Afr Amer 98 mL/min (>60); Estimated Creatinine Clearance 86.48 ml/min; Glucose 119 mg/dL (74-106); Potassium 3.6 mmol/L (3.5-5.1); Sodium Level 141 mmol/L (136-145)
[2019-02-07] MEDS: Clopidogrel Bisulfate 75 MG Tablet PO (05:50)
[2019-02-07] MEDS: Aspirin 81 MG TAB.CHEW PO (05:50)
--- NOTE | 2019-02-07 05:55 | EKG12_ITS ---
Test Reason : AM EKG Blood Pressure : / mmHG Vent. Rate : 057 BPM Atrial Rate : 057 BPM P-R Int : 196 ms QRS Dur : 090 ms QT Int : 436 ms P-R-T Axes : 021 007 002 degrees QTc Int : 424 ms Sinus bradycardia Otherwise normal ECG Confirmed by ISABELLA EDWARDS, MIKI ([id number]), editor publications [employer] ([id number]) on 02/16/2019 11:31:30 AM Referred By: Yousuf Camargo Confirmed By:MIKI MASON MD
--- NOTE | 2019-02-07 08:15 | NURSING ---
Pt going down to stress lab. Assessment negative, denies CP or discomfort this morning.
[2019-02-07] MEDS: hydroCHLOROthiazide 12.5mg 12.5 MG PO (10:19)
--- NOTE | 2019-02-07 12:00 | STRESSREP ---
Stress Test Report Date: 02-07-19 Procedure: Exercise tolerance test/imaging study Indications: Chest pain; CAD; CABG; PCI Consent: Per the patient Procedure: The patient exercised on a Deepak protocol for 12 minutes completing Stage IV achieving a peak heart rate of 171 bpm (102 % predicted maximal heart rate) with a peak blood pressure 212/80 mmHg and a peak MET capacity of 13 METs. The baseline ECG demonstrated normal sinus rhythm. The peak exercise ECG demonstrated no obvious ECG changes. There was a rare PVC during exercise and an isolated ventricular couplet during exercise. The functional capacity was considered good. There was no complaint of chest discomfort during exercise or recovery. The examination was discontinued secondary to dyspnea. Impression: 1. Technically adequate (percent predicted maximal heart rate greater than 85%) exercise tolerance test 2. Peak exercise ECG with no obvious ECG changes 3. There was a rare PVC during exercise and an isolated ventricular couplet during exercise 4. Nuclear images pending Myocardial perfusion imaging study: Technique: The patient was injected with 13.8 mCi of technetium 99m Cardiolite and subsequently rest SPECT Cardiolite nuclear imaging was obtained in the horizontal long, vertical long, and short axis views. The patient exercised on a Deepak protocol for 12 minutes completing Stage IV achieving a peak heart rate of 171 bpm (102 % predicted maximal heart rate) with a peak blood pressure 212/80 mmHg and a peak MET capacity of 13 METs. The patient was injected with 42.0 mCi of technetium 99m Cardiolite and subsequently stress SPECT Cardiolite nuclear imaging was obtained in the horizontal long, vertical long, and short axis views. A gated Cardiolite study at peak stress was obtained. Interpretation: Rest and stress SPECT Cardiolite nuclear imaging status post realignment, normalization, and attenuation correction, demonstrates the appearance of relative uniform tracer uptake and myocardial perfusion appearing within normal limits. There is end systolic thickening and brightening. The gated Cardiolite study demonstrates myocardial thickening and inward wall motion. The reported LVEF is 56 %. Impression: 1. Rest and stress SPECT Cardiolite nuclear imaging demonstrate relative uniform tracer uptake and myocardial perfusion appearing within normal limits. 2. The gated Cardiolite study reports an LVEF of 56 %. This note was generated with [employer] software. It may contain incorrect words, spelling, and punctuation that were not noted in checking the note before signing.
--- NOTE | 2019-02-07 12:03 | STRESSREP_ITS ---
Stress Test Report Date: 02-07-19 Procedure: Exercise tolerance test/imaging study Indications: Chest pain; CAD; CABG; PCI Consent: Per the patient Procedure: The patient exercised on a Deepak protocol for 12 minutes completing Stage IV achieving a peak heart rate of 171 bpm (102 % predicted maximal heart rate) with a peak blood pressure 212/80 mmHg and a peak MET capacity of 13 METs. The baseline ECG demonstrated normal sinus rhythm. The peak exercise ECG demonstrated no obvious ECG changes. There was a rare PVC during exercise and an isolated ventricular couplet during exercise. The functional capacity was considered good. There was no complaint of chest discomfort during exercise or recovery. The examination was discontinued secondary to dyspnea. Impression: 1. Technically adequate (percent predicted maximal heart rate greater than 85%) exercise tolerance test 2. Peak exercise ECG with no obvious ECG changes 3. There was a rare PVC during exercise and an isolated ventricular couplet during exercise 4. Nuclear images pending Myocardial perfusion imaging study: Technique: The patient was injected with 13.8 mCi of technetium 99m Cardiolite and subsequently rest SPECT Cardiolite nuclear imaging was obtained in the horizontal long, vertical long, and short axis views. The patient exercised on a Deepak protocol for 12 minutes completing Stage IV achieving a peak heart rate of 171 bpm (102 % predicted maximal heart rate) with a peak blood pressure 212/80 mmHg and a peak MET capacity of 13 METs. The patient was injected with 42.0 mCi of technetium 99m Cardiolite and subsequently stress SPECT Cardiolite nuclear imaging was obtained in the horizontal long, vertical long, and short axis views. A gated Cardiolite study at peak stress was obtained. Interpretation: Rest and stress SPECT Cardiolite nuclear imaging status post realignment, normalization, and attenuation correction, demonstrates the appearance of relat mike uniform tracer uptake and myocardial perfusion appearing within normal limits. There is end systolic thickening and brightening. The gated Cardiolite study demonstrates myocardial thickening and inward wall motion. The reported LVEF is 56 %. Impression: 1. Rest and stress SPECT Cardiolite nuclear imaging demonstrate relative uniform tracer uptake and myocardial perfusion appearing within normal limits. 2. The gated Cardiolite study reports an LVEF of 56 %. This note was generated with [employer] software. It may contain incorrect words, spelling, and punctuation that were not noted in checking the note before signing.
--- NOTE | 2019-02-07 12:18 | PCM.DC ---
- Discharge Diagnoses Current Active Problems: Current Active and Chronic Problems (Last Reviewed 10/24/18 @ 10:19 by Dulce Maria Ruffin) (1) Chest pain, suspected non-cardiac, unclear specific etiology, unremarkable stress testing, normal cardiac enzymes (2) CAD s/p PCI (3) Hypertension, Elevated above goal (4) Hyperlipidemia (5) Hypokalemia You will use the following diet at home:: Cardiac Your food should be the consistency of: Regular Your liquids should be the consistency of: Regular/Thin Discharge Activity: - - Encourage routine follow-up with PCP and Cardiology. Given negative stress testing continue with current activity levels; however, if recurrent chest discomfort please notify Sergo Castillo prior to further > moderate activity. May resume sexual activity in: No Restrictions Weight Bearing Status: Weight bearing as tolerated Call your doctor if you observe: Fever of 101 or Higher, Inability to urinate, Inability to have a bowel movement, Shortness of breath, Dizziness, Fainting spells, Chest pain, Uncontrolled pain Instructions: ED Chest Pain NonCardiac, ED Chest Pain Atypical Unkn Cause Additional Instructions: (1) The chest pain you experienced does not appear to be from your heart. The stress test is negative and your heart squeezed normally. The cardiac exercise specialist you wore showed no problem with the rhythm of your heart. Additionally, the cardiac enzyme series performed remained normal. Sometimes chest pain can come from a problem with the muscles or skeleton and/or associated with straining or doing some strenuous activity you do not normally perform. Chest pain can also be associated with anxiety and with this you frequently have racing heart, trouble sleeping and irritability. It can also come from gastroesophageal reflux disease or heartburn. People who smoke experience increased heartburn because nicotine decreases the pressure in the lower esophageal sphincter and causes reflux. This type of discomfort is well treated with drinking a large glass of cold water which strips the acid out of the esophagus or taking Mylanta, Maalox or Pepto-Bismol. Other foods to avoid if you have reflux are chocolate, peppermint and calcium containing products such as Tums. (2) During the admission your blood pressures were elevated above goal, therefore your blood pressure regimen was altered to lisinopril/HCTZ 10 mg/12.5 mg daily. Please follow-up with your primary care physician to have repeat assessment, recheck blood pressures to assure at goal as well as repeat basic metabolic panel to assure appropriate renal function following start of this regimen. Allergies/Adverse Reactions: Allergies No Known Allergies Allergy (Verified 02/06/19 18:19) Medications to take at Discharge nitroglycerin 0.4 mg sublingual tablet 0.4 mg SUBLINGUAL Q5-15M PRN #25 tab 11/13/17 Aspirin [Aspirin, Baby] 81 mg PO DAILY 02/06/19 Clopidogrel Bisulfate [Clopidogrel] 75 mg PO DAILY 02/06/19 Potassium Chloride [K-Tab ER] 10 meq PO DAILY 02/06/19 Simvastatin [Zocor] 20 mg PO QHS 02/06/19 Lisinopril/Hydrochlorothiazide [Lisinopril-Hctz 10-12.5 mg Tab] 1 each PO DAILY #30 tablet 02/07/19 The following prescriptions were given: Lisinopril/Hydrochlorothiazide [Lisinopril-Hctz 10-12.5 mg Tab] 1 each PO DAILY #30 tablet Primary Care Physician: Tejal Machado MD [Primary Care Provider] - Please follow up with your Primary Care Physician in: Follow-up within 3-5 days to review admission. Test Results: Test results from this visit will be discussed in further detail at your follow-up appointment, if applicable. Please Follow Up With: Jeremías Castillo MD When: Follow-up within 2-4 weeks, may see CUSTOMS BROKERAGE AGENT to review admit, regimen changes. Proposed Discharge Date: 02/07/19
--- NOTE | 2019-02-07 12:23 | DCINST_ITS ---
- Discharge Diagnoses Current Active Problems: Current Active and Chronic Problems (Last Reviewed 10/24/18 @ 10:19 by Dulce Maria Ruffin) (1) Chest pain, suspected non-cardiac, unclear specific etiology, unremarkable stress testing, normal cardiac enzymes (2) CAD s/p PCI (3) Hypertension, Elevated above goal (4) Hyperlipidemia (5) Hypokalemia You will use the following diet at home:: Cardiac Your food should be the consistency of: Regular Your liquids should be the consistency of: Regular/Thin Discharge Activity: - - Encourage routine follow-up with PCP and Cardiology. Given negative stress testing continue with current activity levels; however, if recurrent chest discomfort please notify Sergo Castillo prior to further > moderate activity. May resume sexual activity in: No Restrictions Weight Bearing Status: Weight bearing as tolerated Call your doctor if you observe: Fever of 101 or Higher, Inability to urinate, Inability to have a bowel movement, Shortness of breath, Dizziness, Fainting spells, Chest pain, Uncontrolled pain Instructions: ED Chest Pain NonCardiac, ED Chest Pain Atypical Unkn Cause Additional Instructions: (1) The chest pain you experienced does not appear to be from your heart. The stress test is negative and your heart squeezed normally. The surveillance monitor you wore showed no problem with the rhythm of your heart. Additionally, the cardiac enzyme series performed remained normal. Sometimes chest pain can come from a problem with the muscles or skeleton and/or associated with straining or doing some strenuous activity you do not normally perform. Chest pain can also be associated with anxiety and with this you frequently have racing heart, trouble sleeping and irritability. It can also come from gastroesophageal reflux disease or heartburn. People who smoke experience increased heartburn because nicotine decreases the pressure in the lower esophageal sphincter and causes reflux. This type of discomfort is well treated with drinking a large glass of cold water which strips the acid out of the esophagus or taking Mylanta, Maalox or Pepto-Bismol. Other foods to avoid if you have reflux are chocolate, peppermint and calcium containing products such as Tums. (2) During the admission your blood pressures were elevated above goal, therefore your blood pressure regimen was altered to lisinopril/HCTZ 10 mg/12.5 mg daily. Please follow-up with your primary care physician to have repeat assessment, recheck blood pressures to assure at goal as well as repeat basic metabolic panel to assure appropriate renal function following start of this regimen. Allergies/Adverse Reactions: Allergies No Known Allergies Allergy (Verified 02/06/19 18:19) Medications to take at Discharge nitroglycerin 0.4 mg sublingual tablet 0.4 mg SUBLINGUAL Q5-15M PRN #25 tab 11/13/17 Aspirin [Aspirin, Baby] 81 mg PO DAILY 02/06/19 Clopidogrel Bisulfate [Clopidogrel] 75 mg PO DAILY 02/06/19 Potassium Chloride [K-Tab ER] 10 meq PO DAILY 02/06/19 Simvastatin [Zocor] 20 mg PO QHS 02/06/19 Lisinopril/Hydrochlorothiazide [Lisinopril-Hctz 10-12.5 mg Tab] 1 each PO DAILY #30 tablet 02/07/19 The following prescriptions were given: Lisinopril/Hydrochlorothiazide [Lisinopril-Hctz 10-12.5 mg Tab] 1 each PO DAILY #30 tablet Primary Care Physician: Tejal Machado MD [Primary Care Provider] - Please follow up with your Primary Care Physician in: Follow-up within 3-5 days to review admission. Test Results: Test results from this visit will be discussed in further detail at your follow- up appointment, if applicable. Please Follow Up With: Jeremías Castillo MD When: Follow-up within 2-4 weeks, may see PHYSICIST ACOUSTICS to review admit, regimen changes. Proposed Discharge Date: 02/07/19
--- NOTE | 2019-02-07 12:38 | PCM.DC.SUM ---
Discharge Date and Diagnosis - Problem List Patient Problems: Active and Suspected Problems (Last Reviewed 10/24/18 @ 10:19 by Dulce Maria Ruffin) Chest pain (Acute) Date of Admission: 02/06/19 Date of Discharge: 02/07/19 - Primary Discharge Diagnosis Active and Suspected Problems (Last Reviewed 10/24/18 @ 10:19 by Dulce Maria Ruffin) (1) Chest pain, suspected non-cardiac, unclear specific etiology, unremarkable stress testing, normal cardiac enzymes (2) CAD s/p PCI (3) Hypertension, Elevated above goal (4) Hyperlipidemia (5) Hypokalemia - Secondary Discharge Diagnosis Chronic Problems (Last Reviewed 10/24/18 @ 10:19 by Dulce Maria Ruffin) Atherosclerosis of coronary artery of [place] heart without angina pectoris (Chronic) PTCA/DEISI of the mid LCX w/ 3.0 x 12 mm Promus Synergy 02/28/18 03/16/2016 CABG x5 vessels: Complex VILLATORO LAD, bridge diagonal, sequential radial to the posterolateral CX, bridge lateral CX, BEBETO to the PDA, History of coronary artery stent placement (Chronic 02/28/18) PTCA/DEISI of the mid LCX w/ 3.0 x 12 mm Promus Synergy 02/28/18 HTN (hypertension) (Chronic) H/O coronary artery bypass surgery (Chronic) 03/16/2016 CABG x5 vessels: Complex VILLATORO LAD, bridge diagonal, sequential radial to the posterolateral CX, bridge lateral CX, [facility] [place]. HLD (hyperlipidemia) (Chronic) Hospital Course and Treatment Imaging Results: 02/07/19 05:55 Nuclear Stress Test - Treadmil [NM] AM (NON MEDS) Operations: None Procedures: EKG, Stress test Summary of Care Provided: The patient is a 53 y/o M w/ PMHx: CAD s/p PCI and CABG, HTN, HLD, Hypokalemia who presented the [facility] ED on 02/06/19 with history of onset precordial chest discomfort over the lower chest, pressure-like in nature, starting while watching TV with no radiation, nausea, emesis, dyspnea. In the ED work-up included EKG sinus rhythm without evidence of acute ischemia, CXR without acute process, unremarkable CBC and chemistry aside mild hypokalemia corrected with regimen, cardiac enzyme set x 1 normal. The patient was admitted to PCU, maintained on cardiac telemetry, serial cardiac enzymes were obtained as well as serial EKGs which remained unremarkable. Patient underwent AM stress testing which was noted to be negative for inducible ischemia. Patient had no recurrent chest discomfort. During admission BP was noted to be above goal with noted underlying HR 50-60s therefore regimen changed to ACEI/HCTZ low dose with requested repeat BP assessments with PCP, repeat BMP assessment with PCP following regimen start. Patient was discharged to home in stable condition with recommendation for follow-up with primary care physician within 3-5 days as well as requested follow-up with his Wire Web Worker, Dr. Castillo to review admission, testing performed and regimen alterations. DAY OF DISCHARGE PROGRESS NOTE: Subjective: Patient without acute event overnight per self and nursing report. Patient denied any recurrent chest discomfort. Patient denies fever, chills, nausea, emesis, abdominal pain or dyspnea. Patient is normally active and exercises regularly, aerobic > 40 minutes duration without any chest discomfort. Patient agreeable to discharge to home. Patient will be discharged with follow-up with primary care physician within 3-5 days in addition to follow-up with his Wire Web Worker. Objective: T 97.6, heart rate 60, BP 149/87, respiratory rate 16, 100% on room air. Physical Examination: General: awake, alert, oriented x 3 and cooperative, seated upright in the bed, NAD. Skin: normal color, turgor, no icterus, cyanosis. HEENT: AT/NC, EOMI, PERRLA, MMM. Lungs: CTA bilaterally, moderate effort, mild decrease BL bases, no rales, ronchi or wheezing; Heart: Regular rate and rhythm; no gallop, rub audible. Abdomen: soft, NTTP, ND, normal BS. Extremities: no cyanosis, clubbing, or edema. Neurological: patient awake, alert, oriented x 3; cognitive function appears intact upon questioning,; pupils equally reactive to light and accomodation; cranial nerves II-XII grossly normal, moving all 4 extremities, strength appropriate. Psychiatric: affect appears normal, no acute evidence of depressive or anxiety feelings. Assessment and Plan: Please see hospital summary above. Patient Problems: Active and Suspected Problems (Last Reviewed 10/24/18 @ 10:19 by Dulce Maria Ruffin) Chest pain (Acute) - Physical Exam Vital Signs Temp Pulse Resp BP Pulse Ox 97.6 F L 60 16 149/87 H 100 02/07/19 10:46 02/07/19 10:46 02/07/19 10:46 02/07/19 10:46 02/07/19 08:19 Oxygen Flow Rate (L/min) 1 Oxygen Delivery Method Room Air Weight: 207 lb 3.752 oz Body Mass Index (BMI) 29.6 Finger Stick Blood Glucose 146 Intake and Output for Last 24 Hours 02/05/19 02/06/19 02/07/19 23:59 23:59 23:59 Intake Total 240 / 240 360 / 360 Balance 240 / 240 360 / 360 Laboratory Tests Past 24 Hrs 02/06/19 02/06/19 02/06/19 18:26 18:26 23:05 WBC 6.4 RBC 4.90 Hgb 16.0 Hct 44.2 MCV 90.2 MCH 32.7 H MCHC 36.2 H RDW 12.4 RDW Differential 40.8 Plt Count 248 MPV 9.9 Immature Gran % (Auto) 0.200 Neut % (Auto) 51.8 Lymph % (Auto) 36.4 [place] % (Auto) 9.3 Eos % (Auto) 1.7 Baso % (Auto) 0.6 Absolute Neuts (auto) 3.3 Absolute Lymphs (auto) 2.32 Total Counted Not Reportable PT INR APTT Sodium 140 Potassium 3.4 L Chloride 103 Carbon Dioxide 28.0 Anion Gap 9 BUN 17 Creatinine 1.19 Estim Creat Clear Calc 74.12 Est GFR (MDRD) Af Amer 82 Est GFR (MDRD) Non-Af 68 BUN/Creatinine Ratio 14.3 Glucose 139 H Calcium 8.7 Troponin I < 0.015 < 0.015 02/07/19 02/07/19 02/07/19 02:15 02:15 02:15 WBC 5.5 RBC 4.70 Hgb 15.2 Hct 41.6 MCV 88.5 MCH 32.3 H MCHC 36.5 H RDW 11.8 RDW Differential 37.7 Plt Count 214 MPV 9.6 Immature Gran % (Auto) 0.200 Neut % (Auto) 61.6 Lymph % (Auto) 28.0 [place] % (Auto) 8.6 Eos % (Auto) 1.1 Baso % (Auto) 0.5 Absolute Neuts (auto) 3.4 Absolute Lymphs (auto) 1.53 Total Counted Not Reportable PT 13.3 INR 1.0 APTT 29.6 Sodium 141 Potassium 3.6 Chloride 107 Carbon Dioxide 29.0 Anion Gap 5 BUN 14 Creatinine 1.02 Estim Creat Clear Calc 86.48 Est GFR (MDRD) Af Amer 98 Est GFR (MDRD) Non-Af 81 BUN/Creatinine Ratio 13.7 Glucose 119 H Calcium 8.4 L Troponin I < 0.015 Discharge Activity: - - Encourage routine follow-up with PCP and Cardiology. Given negative stress testing continue with current activity levels; however, if recurrent chest discomfort please notify Sergo Castillo prior to further > moderate activity. May resume sexual activity in: No Restrictions Weight Bearing Status: Weight bearing as tolerated Call your doctor if you observe: Fever of 101 or Higher, Inability to urinate, Inability to have a bowel movement, Shortness of breath, Dizziness, Fainting spells, Chest pain, Uncontrolled pain Home Medications: Medications to take at Discharge nitroglycerin 0.4 mg sublingual tablet 0.4 mg SUBLINGUAL Q5-15M PRN #25 tab 11/13/17 Aspirin [Aspirin, Baby] 81 mg PO DAILY 02/06/19 Clopidogrel Bisulfate [Clopidogrel] 75 mg PO DAILY 02/06/19 Potassium Chloride [K-Tab ER] 10 meq PO DAILY 02/06/19 Simvastatin [Zocor] 20 mg PO QHS 02/06/19 Lisinopril/Hydrochlorothiazide [Lisinopril-Hctz 10-12.5 mg Tab] 1 each PO DAILY #30 tablet 02/07/19 Following Prescrptions Were Given to Patient: Lisinopril/Hydrochlorothiazide [Lisinopril-Hctz 10-12.5 mg Tab] 1 each PO DAILY #30 tablet Primary Care Physician: Tejal Machado MD [Primary Care Provider] - Please follow up with your Primary Care Physician in: Follow-up within 3-5 days to review admission. Please Follow Up With: Jeremías Castillo MD When: Follow-up within 2-4 weeks, may see JOINT CLEANING MACHINE OPERATOR to review admit, regimen changes. Patient Instructions: ED Chest Pain NonCardiac, ED Chest Pain Atypical Unkn Cause Disposition: Home Minutes spent on discharge:: 25 Patient Condition:: Fair Medical Necessity - Tobacco Use Smoking Status: Unknown if ever smoked Tobacco Use: Non-smoker Meaningful Use Info Meaningful Use Diagnoses (Choose all that apply): None applicable Code Visit OBSV E&M: 13287 Observation care discharge
--- NOTE | 2019-02-07 12:43 | DS.PCM_ITS ---
Discharge Date and Diagnosis - Problem List Patient Problems: Active and Suspected Problems (Last Reviewed 10/24/18 @ 10:19 by Dulce Maria Ruffin) Chest pain (Acute) Date of Admission: 02/06/19 Date of Discharge: 02/07/19 - Primary Discharge Diagnosis Active and Suspected Problems (Last Reviewed 10/24/18 @ 10:19 by Dulce Maria Ruffin) (1) Chest pain, suspected non-cardiac, unclear specific etiology, unremarkable stress testing, normal cardiac enzymes (2) CAD s/p PCI (3) Hypertension, Elevated above goal (4) Hyperlipidemia (5) Hypokalemia - Secondary Discharge Diagnosis Chronic Problems (Last Reviewed 10/24/18 @ 10:19 by Dulce Maria Ruffin) Atherosclerosis of coronary artery of [place] heart without angina pectoris (Chronic) PTCA/DEISI of the mid LCX w/ 3.0 x 12 mm Promus Synergy 02/28/18 03/16/2016 CABG x5 vessels: Complex VILLATORO LAD, bridge diagonal, sequential radial to the posterolateral CX, bridge lateral CX, BEBETO to the PDA, History of coronary artery stent placement (Chronic 02/28/18) PTCA/DEISI of the mid LCX w/ 3.0 x 12 mm Promus Synergy 02/28/18 HTN (hypertension) (Chronic) H/O coronary artery bypass surgery (Chronic) 03/16/2016 CABG x5 vessels: Complex VILLATORO LAD, bridge diagonal, sequential radial to the posterolateral CX, bridge lateral CX, [facility] [place]. HLD (hyperlipidemia) (Chronic) Hospital Course and Treatment Imaging Results: 02/07/19 05:55 Nuclear Stress Test - Treadmil [NM] AM (NON MEDS) Operations: None Procedures: EKG, Stress test Summary of Care Provided: The patient is a 53 y/o M w/ PMHx: CAD s/p PCI and CABG, HTN, HLD, Hypokalemia who presented the [facility] ED on 02/06/19 with history of onset precordial chest discomfort over the lower chest, pressure-like in nature, starting while watching TV with no radiation, nausea, emesis, dyspnea. In the ED work-up included EKG sinus rhythm without evidence of acute ischemia, CXR without acute process, unremarkable CBC and chemistry aside mild hypokalemia corrected with regimen, cardiac enzyme set x 1 normal. The patient was admitted to PCU, maintained on cardiac telemetry, serial cardiac enzymes were obtained as well as serial EKGs which remained unremarkable. Patient underwent AM stress testing which was noted to be negative for inducible ischemia. Patient had no recurrent chest discomfort. During admission BP was noted to be above goal with noted underlying HR 50-60s therefore regimen changed to ACEI/HCTZ low dose with requested repeat BP assessments with PCP, repeat BMP assessment with PCP following regimen start. Patient was discharged to home in stable condition with recommendation for follow-up with primary care physician within 3-5 days as well as requested follow-up with his Labor Service Representative, Dr. Castillo to review admission, testing performed and regimen alterations. DAY OF DISCHARGE PROGRESS NOTE: Subjective: Patient without acute event overnight per self and nursing report. Patient denied any recurrent chest discomfort. Patient denies fever, chills, nausea, emesis, abdominal pain or dyspnea. Patient is normally active and exerc ises regularly, aerobic > 40 minutes duration without any chest discomfort. Patient agreeable to discharge to home. Patient will be discharged with follow- up with primary care physician within 3-5 days in addition to follow-up with his Labor Service Representative. Objective: T 97.6, heart rate 60, BP 149/87, respiratory rate 16, 100% on room air. Physical Examination: General: awake, alert, oriented x 3 and cooperative, seated upright in the bed, NAD. Skin: normal color, turgor, no icterus, cyanosis. HEENT: AT/NC, EOMI, PERRLA, MMM. Lungs: CTA bilaterally, moderate effort, mild decrease BL bases, no rales, ronchi or wheezing; Heart: Regular rate and rhythm; no gallop, rub audible. Abdomen: soft, NTTP, ND, normal BS. Extremities: no cyanosis, clubbing, or edema. Neurological: patient awake, alert, oriented x 3; cognitive function appears intact upon questioning,; pupils equally reactive to light and accomodation; cranial nerves II-XII grossly normal, moving all 4 extremities, strength appropriate. Psychiatric: affect appears normal, no acute evidence of depressive or anxiety feelings. Assessment and Plan: Please see hospital summary above. Patient Problems: Active and Suspected Problems (Last Reviewed 10/24/18 @ 10:19 by Dulce Maria Ruffin) Chest pain (Acute) - Physical Exam Vital Signs Temp Pulse Resp BP Pulse Ox 97.6 F L 60 16 149/87 H 100 02/07/19 10:46 02/07/19 10:46 02/07/19 10:46 02/07/19 10:46 02/07/19 08:19 Oxygen Flow Rate (L/min) 1 Oxygen Delivery Method Room Air Weight: 207 lb 3.752 oz Body Mass Index (BMI) 29.6 Finger Stick Blood Glucose 146 Intake and Output for Last 24 Hours 02/05/19 02/06/19 02/07/19 23:59 23:59 23:59 Intake Total 240 / 240 360 / 360 Balance 240 / 240 360 / 360 Laboratory Tests Past 24 Hrs 02/06/19 02/06/19 02/06/19 18:26 18:26 23:05 WBC 6.4 RBC 4.90 Hgb 16.0 Hct 44.2 MCV 90.2 MCH 32.7 H MCHC 36.2 H RDW 12.4 RDW Differential 40.8 Plt Count 248 MPV 9.9 Immature Gran % (Auto) 0.200 Neut % (Auto) 51.8 Lymph % (Auto) 36.4 [place] % (Auto) 9.3 Eos % (Auto) 1.7 Baso % (Auto) 0.6 Absolute Neuts (auto) 3.3 Absolute Lymphs (auto) 2.32 Total Counted Not Reportable PT INR APTT Sodium 140 Potassium 3.4 L Chloride 103 Carbon Dioxide 28.0 Anion Gap 9 BUN 17 Creatinine 1.19 Estim Creat Clear Calc 74.12 Est GFR (MDRD) Af Amer 82 Est GFR (MDRD) Non-Af 68 BUN/Creatinine Ratio 14.3 Glucose 139 H Calcium 8.7 Troponin I < 0.015 < 0.015 02/07/19 02/07/19 02/07/19 02:15 02:15 02:15 WBC 5.5 RBC 4.70 Hgb 15.2 Hct 41.6 MCV 88.5 MCH 32.3 H MCHC 36.5 H RDW 11.8 RDW Differential 37.7 Plt Count 214 MPV 9.6 Immature Gran % (Auto) 0.200 Neut % (Auto) 61.6 Lymph % (Auto) 28.0 [place] % (Auto) 8.6 Eos % (Auto) 1.1 Baso % (Auto) 0.5 Absolute Neuts (auto) 3.4 Absolute Lymphs (auto) 1.53 Total Counted Not Reportable PT 13.3 INR 1.0 APTT 29.6 Sodium 141 Potassium 3.6 Chloride 107 Carbon Dioxide 29.0 Anion Gap 5 BUN 14 Creatinine 1.02 Estim Creat Clear Calc 86.48 Est GFR (MDRD) Af Amer 98 Est GFR (MDRD) Non-Af 81 BUN/Creatinine Ratio 13.7 Glucose 119 H Calcium 8.4 L Troponin I < 0.015 Discharge Activity: - - Encourage routine follow-up with PCP and Cardiology. Given negative stress testing continue with current activity levels; however, if recurrent chest discomfort please notify Sergo Castillo prior to further > moderate activity. May resume sexual activity in: No Restrictions Weight Bearing Status: Weight bearing as tolerated Call your doctor if you observe: Fever of 101 or Higher, Inability to urinate, Inability to have a bowel movement, Shortness of breath, Dizziness, Fainting spells, Chest pain, Uncontrolled pain Home Medications: Medications to take at Discharge nitroglycerin 0.4 mg sublingual tablet 0.4 mg SUBLINGUAL Q5-15M PRN #25 tab 11/13/17 Aspirin [Aspirin, Baby] 81 mg PO DAILY 02/06/19 Clopidogrel Bisulfate [Clopidogrel] 75 mg PO DAILY 02/06/19 Potassium Chloride [K-Tab ER] 10 meq PO DAILY 02/06/19 Simvastatin [Zocor] 20 mg PO QHS 02/06/19 Lisinopril/Hydrochlorothiazide [Lisinopril-Hctz 10-12.5 mg Tab] 1 each PO DAILY #30 tablet 02/07/19 Following Prescrptions Were Given to Patient: Lisinopril/Hydrochlorothiazide [Lisinopril-Hctz 10-12.5 mg Tab] 1 each PO DAILY #30 tablet Primary Care Physician: Tejal Machado MD [Primary Care Provider] - Please follow up with your Primary Care Physician in: Follow-up within 3-5 days to review admission. Please Follow Up With: Jeremías Castillo MD When: Follow-up within 2-4 weeks, may see QUARRY BOSS to review admit, regimen changes. Patient Instructions: ED Chest Pain NonCardiac, ED Chest Pain Atypical Unkn Cause Disposition: Home Minutes spent on discharge:: 25 Patient Condition:: Fair Medical Necessity - Tobacco Use Smoking Status: Unknown if ever smoked Tobacco Use: Non-smoker Meaningful Use Info Meaningful Use Diagnoses (Choose all that apply): None applicable Code Visit OBSV E&M: 12294 Observation care discharge
--- NOTE | 2019-02-07 13:05 | NURSING ---
Student nurse charting reviewed.
== END 2019-02-07 12:24 | disposition home or self-care (01) ==
LOC: ED 19:45 → PCU 20:26
PROVIDERS: Admitting Provider Internal Medicine; Emergency Provider Emergency Medicine; Family Provider Internal Medicine; PCP Internal Medicine; Referring Provider Internal Medicine; Visit Provider Family Medicine
DX: R07.2 Precordial pain (principal); I25.10 Atherosclerotic heart disease of native coronary artery without angina pectoris; I10 Essential (primary) hypertension; E78.5 Hyperlipidemia, unspecified; E87.6 Hypokalemia; Z79.02 Long term (current) use of antithrombotics/antiplatelets; Z79.899 Other long term (current) drug therapy; Z79.82 Long term (current) use of aspirin; Z95.1 Presence of aortocoronary bypass graft
CPT/HCPCS: 36415; 71045; 78452; 80048; 84484; 85025; 85610; 85730; 93005; 93017; 96374; 99218; 99283; A9500; A4216; G0378

== ENCOUNTER → 2019-12-09 10:01 | Outpatient (CLI) | payer BC, SELFPAY ==
[2019-12-07 14:57] VITALS: BMI 29.8
[2019-12-09 10:57] LABS: AST(SGOT) 25 U/L (15-37); Alanine Aminotransfer ALT/SGPT 38 U/L (16-61); Alkaline Phosphatase 57 U/L (45-117); Anion Gap 4 (5-15); BUN 14 mg/dL (7-18); BUN/Creat Ratio 11.5 RATIO (10-20); Bilirubin, Direct 0.21 mg/dL (0.00-0.30); Calcium,Total 9.1 mg/dL (8.5-10.1); Chloride 107 mmol/L (98-107); Cholesterol 170 mg/dL (200); Creatinine, Serum 1.22 mg/dL (0.70-1.30); EST Glomerular Filtration Rate 66 mL/min (>60); Est Glom Filt Rate - Afr Amer 79 mL/min (>60); Globulin 3.3 g/dL (2.2-4.2); Glucose 100 mg/dL (74-106); High Density Lipoprotein 51 mg/dL; Potassium 3.8 mmol/L (3.5-5.1); Protein, Total 7.3 g/dL (6.4-8.2); Sodium Level 140 mmol/L (136-145); Triglycerides 156 mg/dL; Very Low Density Lipoprotein 31 mg/dL (5-40)
== END ==
PROVIDERS: PCP Internal Medicine; Referring Provider Internal Medicine Cardiovascular Disease; Visit Provider Internal Medicine Cardiovascular Disease
DX: E78.5 Hyperlipidemia, unspecified (principal); E87.6 Hypokalemia; R25.2 Cramp and spasm; T50.2X5A Adverse effect of carbonic-anhydrase inhibitors, benzothiadiazides and other diuretics, initial encounter
CPT/HCPCS: 36415; 80048; 80061; 80076

== ENCOUNTER 2021-09-11 12:58 | Emergency (ER) | payer OTHER, SELFPAY ==
[2021-09-11 12:59] VITALS: BP 161/97; PULSE 68; RESP 18; TEMP 36.6; O2SAT 100; BMI 28.8
--- NOTE | 2021-09-11 14:08 | EKG12_ITS ---
Test Reason : CP Blood Pressure : / mmHG Vent. Rate : 063 BPM Atrial Rate : 063 BPM P-R Int : 170 ms QRS Dur : 090 ms QT Int : 420 ms P-R-T Axes : 034 004 029 degrees QTc Int : 429 ms Normal sinus rhythm Normal ECG Confirmed by ISABELLA EDWARDS, MIKI ([id number]), associate editor COMFORT BONILLA ([id number]) on 09/13/2021 8:29:42 AM Referred By: MARIANELA/SANTANA Confirmed By:MIKI MASON MD
[2021-09-11 14:12] VITALS: BP 161/107; PULSE 63; RESP 17; O2SAT 98
[2021-09-11 14:22] LABS: Absolute Neutrophil Count 2.9 X10^3/uL (2.0-7.7); Basophil# 0.04 X10^3/uL; Basophil% 0.7 % (0-1); Eosinophil# 0.18 X10^3/uL; Eosinophils% 3.4 % (0-5); Hematocrit 46.3 % (40-54); Hemoglobin 16.4 g/dL (13.0-16.5); Lymphocyte % 31.7 % (19-41); Mean Corp Hgb Conc 35.4 g/dL (32-36); Mean Corpuscular Hgb 32.7 pg (27.0-32.0); Mean Corpuscular Volume 92.2 fL (80-94); Monocyte# 0.55 X10^3/uL; Monocyte% 10.2 % (0-10); NRBC Flagged by Analyzer 0 % (0-5); Neutrophil # 2.88 X10^3/uL (2.7-7.7); Neutrophil % 53.6 % (47-70); Platelet Count 262 K/mm3 (150-450); RBC Distribution Width CV 11.8 % (11.6-14.6); RBC Distribution Width SD 39.8 fl (35.1-43.9); Red Blood Count 5.02 M/mm3 (4.6-6.2); White Blood Count 5.4 K/mm3 (4.4-11.0)
[2021-09-11 14:35] LABS: Anion Gap 4 (5-15); BUN 15 mg/dL (7-18); BUN/Creat Ratio 13.2 RATIO (10-20); Calcium,Total 9.2 mg/dL (8.5-10.1); Chloride 104 mmol/L (98-107); Creatinine, Serum 1.14 mg/dL (0.70-1.30); EST Glomerular Filtration Rate 71 mL/min (>60); Est Glom Filt Rate - Afr Amer 85 mL/min (>60); Estimated Creatinine Clearance 74.71 ml/min; Glucose 122 mg/dL (74-106); Potassium 3.7 mmol/L (3.5-5.1); Sodium Level 139 mmol/L (136-145); Troponin-I HS 9 pg/mL (3.0-78.0)
[2021-09-11 14:42] VITALS: BP 151/91; BP 154/93; BP 158/104; PULSE 64; PULSE 73
[2021-09-11 15:01] VITALS: BP 144/91
--- NOTE | 2021-09-11 15:45 | EX.ED.DYSGE1 ---
HPI History of Present Illness Chief Complaint: Chest Pain Detail of Chief Complaint: Chest pain that lasted 1 minute with dyspnea and lightheadedness Informant: patient and spouse/S.O. Onset/Context/Timing Onset: Today and Yesterday Context: Sudden Onset Timing: Intermittent (Duration of lightheadedness and shortness of breath was 15 minutes. Duration of chest pain was 1 minute) Quality: Tightness Location: Left anterior chest Current Severity: Gone Maximum Severity: Mild Worsened by: Nothing Relieved by: Nothing Associated Symptoms Associated Symptoms: None and no radiation Narrative Narrative: Patient is a middle-age male history of coronary disease with 5 vessel bypass surgery several years ago and 1 year after bypass required a stent. He also has his hypertension and hyperlipidemia. He is on potassium supplement since he is on a diuretic. He also has history of hypercholesterolemia. Patient states he developed shortness of breath and lightheadedness lasted 15 minutes. There was no ocular, auditory or visual symptoms. He presently has notes chest pain. He does report some intermittent lightheadedness. He had no shortness of breath. He denies black or maroon-colored stool. He is not on anticoagulant. He is on antiplatelet Plavix as well as baby aspirin. He denies hematuria. Denies bruising easily. Denies headache, visual, ocular auditory symptoms. He denies any abdominal pain or back pain. He denies history of VTE. Denies leg pain, swelling discoloration. Prior similar symptoms: No Recent Illness/Hospitalization: No [facility] Medical History Acute respiratory failure with hypoxia Atelectasis HLD (hyperlipidemia) HTN (hypertension) Pleural effusion in other conditions classified elsewhere Pneumothorax on left Home Medications nitroglycerin 0.4 mg sublingual tablet 0.4 mg SUBLINGUAL Q5-15M PRN #25 tab 11/13/17 [Rx Last Taken Unknown] aspirin 81 mg PO DAILY 02/06/19 [History Last Taken 02/06/19] clopidogrel 75 mg tablet 75 mg PO DAILY #90 tab 03/08/21 [Rx Last Taken Unknown] lisinopril 10 mg-hydrochlorothiazide 12.5 mg tablet 1 tab PO DAILY #90 tab 03/08/21 [Rx Last Taken Unknown] potassium chloride 10 mEq tablet,extended release 10 meq PO DAILY #90 tab 03/08/21 [Rx Last Taken Unknown] simvastatin 20 mg tablet 20 mg PO QHS #90 tab 03/08/21 [Rx Last Taken Unknown] Allergy/AdvReac Type Severity Reaction Status Date / Time No Known Allergies Allergy Verified 09/11/21 13:05 Surgical History H/O coronary artery bypass surgery History of coronary artery stent placement (02/28/18) History of left heart catheterization (LHC) left elbow surgery Social History (Updated 09/11/21 @ 15:[address] Ross Murcia MD) household members: spouse Smoking Status: Never smoker alcohol intake: current alcohol intake frequency: a few times a week Alcohol type: beer substance use type: does not use caffeine: No what type of physical activity do you participate in: weight training frequency: 3-4 times per week duration: 45-60 minutes/day seatbelt use: never do you feel safe at home: Yes ROS ROS ED Constitutional Constitutional ED: Denies chills, fever(s), subjective, sweats or weight loss Eyes Eyes: Denies blurry vision, change in vision or diplopia ENT ENT ED: Denies ear pain, rhinorrhea or sore throat Cardiovascular Cardiovascular: Reports chest pain; Denies orthopnea, palpitations, paroxysmal nocturnal dyspnea or racing heartbeat Respiratory/Chest Respiratory/Chest: Reports dyspnea; Denies cough, dyspnea on exertion, orthopnea, paroxysmal nocturnal dyspnea or sputum Gastrointestinal Gastrointestinal: Denies abdominal pain, constipation, diarrhea, melena, nausea or vomiting Genitourinary Genitourinary ED: Denies dysuria, hematuria or urinary frequency Musculoskeletal Musculoskeletal: Denies arthralgias, back pain or myalgias Integumentary Denies rash Neurologic Neurologic: Denies headache(s), paresthesias or weakness Hematologic/Lymphatic Hematologic/Lymphatic: Denies anemia, easy bleeding or easy bruising EXAM Physical Exam Const Vital Signs: 09/11/21 12:59 09/11/21 13:02 09/11/21 14:12 Temperature 97.9 F Temperature Source Temporal Pulse Rate 68 63 Pulse Rate [Lying] Pulse Rate [Sitting] Pulse Rate [Standing] Respiratory Rate 18 17 Respiratory Effort Normal Blood Pressure 161/97 H 161/107 H Blood Pressure [Lying] Blood Pressure [Sitting] Blood Pressure [Standing] Blood Pressure Mean 118 125 Blood Pressure Mean [Lying] Blood Pressure Mean [Sitting] Blood Pressure Mean [Standing] Pulse Ox 100 98 Oxygen Delivery Method Room Air Room Air 09/11/21 14:42 09/11/21 15:01 Temperature Temperature Source Pulse Rate Pulse Rate [Lying] 64 Pulse Rate [Sitting] 64 Pulse Rate [Standing] 73 Respiratory Rate Respiratory Effort Blood Pressure 144/91 H Blood Pressure [Lying] 151/91 H Blood Pressure [Sitting] 158/104 H Blood Pressure [Standing] 154/93 H Blood Pressure Mean 108 Blood Pressure Mean [Lying] 111 Blood Pressure Mean [Sitting] 122 Blood Pressure Mean [Standing] 113 Pulse Ox Oxygen Delivery Method Positive well nourished and well developed General Appearance ED: well developed and NAD; Negative for cyanotic or pallor HEENT HEENT Narrative: Head is atraumatic normocephalic. Ears normal. Nares patent. Posterior pharynx out erythema or exudate. Eyes PERRL and EOMs intact bilaterally General Eye ED: Negative for pale conjunctiva or scleral icterus Neck no lymphadenopathy, supple and no JVD Resp normal respiratory effort and clear to auscultation bilaterally Effort and Inspection: Negative for pain with movement Cardio regular rate, regular rhythm, S1 normal heart sound, S2 normal heart sound and no murmurs GI normal to inspection, nondistended, normoactive bowel sounds, non-tender and non-distended Auscultation: normoactive bowel sounds Palpation: soft Back/Spine no CVA tenderness Cervical Spine: Negative for cervical spine tenderness Thoracic Spine / Upper Back: Negative for thoracic spinal tenderness or paraspinal muscle tenderness Extremity normal to inspection Extremity Narrative: There is no asymmetry, swelling, discoloration, leg vein distention, palpable cords or tenderness along the distribution of the deep venous system. PT and DP pulse are palpable. General Extremety ED: Negative for edema or tenderness General Extremity: Negative for edema Neuro oriented x3 and no sensory deficits noted Sensorium / Orientation: alert Motor Exam: strength 5/5 throughout Psych mental status grossly normal Skin no rashes or lesions noted, no wounds and skin turgor normal General Skin Exam: Negative for jaundice or pallor MDM MDM MDM Narrative Medical decision making narrative: In light of patient's past medical history troponin was obtained. He was concerned for diabetes since there is a family history. EKG to rule out acute ischemia/STEMI. CBC to evaluate for anemia and BMP to assess renal function and blood sugar. Patient was informed of his results. Plan is to discharge to home. He is to follow-up with his primary care physician. Lab Data Labs: Laboratory Results - last 24 hr 09/11/21 09/11/21 13:20 13:20 WBC 5.4 RBC 5.02 Hgb 16.4 Hct 46.3 MCV 92.2 MCH 32.7 H MCHC 35.4 RDW Std Deviation 39.8 RDW Coeff of [place] 11.8 Plt Count 262 MPV 10.0 Immature Gran % (Auto) 0.400 Neut % (Auto) 53.6 Lymph % (Auto) 31.7 Davis % (Auto) 10.2 H Eos % (Auto) 3.4 Baso % (Auto) 0.7 Absolute Neuts (auto) 2.9 Absolute Lymphs (auto) 1.70 Nucleated RBC % 0 Sodium 139 Potassium 3.7 Chloride 104 Carbon Dioxide 31.0 Anion Gap 4 L BUN 15 Creatinine 1.14 Estim Creat Clear Calc 74.71 Est GFR (MDRD) Af Amer 85 Est GFR (MDRD) Non-Af 71 BUN/Creatinine Ratio 13.2 Glucose 122 H Calcium 9.2 Troponin I High Sens 9 EKG Initial EKG: Attestation: I personally reviewed and interpreted this EKG as follows: Interpretation: Sinus Rhythm and No Acute Injury Pattern (The EKG is normal. Rate is 63. GA interval is 107 the milliseconds. QRS durations 90 ms. QT duration 4 to 20 ms. [place] is normal.) Discharge Plan Triage Chief Complaint: Chest Pain ED Provider: Ross Murcia Dx/Rx/DC Orders Clinical Impression: Dyspnea, Chest pain in adult Instructions: ED Chest Pain, Noncardiac, ED Dyspnea Prescriptions: No Action aspirin 81 MG tablet,chewable 81 mg PO DAILY RF: 0 nitroglycerin 0.4 mg tablet, sublingual 0.4 mg SUBLINGUAL Q5-15M PRN (Reason: chest pain) Qty: 25 RF: 3 clopidogrel 75 mg tablet 75 mg PO DAILY Qty: 90 RF: 3 lisinopril-hydrochlorothiazide 10-12.5 mg tablet 1 tab PO DAILY Qty: 90 RF: 3 potassium chloride 10 mEq tablet extended release 10 meq PO DAILY Qty: 90 RF: 4 simvastatin 20 mg tablet 20 mg PO QHS Qty: 90 RF: 3 Primary Care Provider: Tejal Machado Referrals: Tejal Machado MD [Primary Care Provider] - 3-5 Days Disposition Disposition: Home, Self Care
[2021-09-11 15:55] VITALS: BP 157/90; PULSE 60; RESP 16; O2SAT 97
== END 2021-09-11 16:00 | disposition home or self-care (01) ==
PROVIDERS: Emergency Provider Emergency Medicine; PCP Internal Medicine
DX: R06.00 Dyspnea, unspecified (principal); R06.02 Shortness of breath; R42 Dizziness and giddiness; R07.9 Chest pain, unspecified; I25.10 Atherosclerotic heart disease of native coronary artery without angina pectoris; I10 Essential (primary) hypertension; E78.5 Hyperlipidemia, unspecified; E78.00 Pure hypercholesterolemia, unspecified; Z79.02 Long term (current) use of antithrombotics/antiplatelets; Z95.5 Presence of coronary angioplasty implant and graft; Z95.1 Presence of aortocoronary bypass graft; Z79.82 Long term (current) use of aspirin
CPT/HCPCS: 80048; 84484; 85025; 93005; 99284; A4216

== ENCOUNTER → 2025-09-08 | Outpatient (CLI) | payer OTHER, SELFPAY ==
[2025-09-08 16:00] LABS: Hematocrit 43.6 % (40-54); Hemoglobin 15.6 g/dL (13.0-16.5); Immature Granulocytes Count 0.020 X10^3/uL (0.0-0.0); Mean Corp Hgb Conc 35.8 g/dL (32-36); Mean Corpuscular Volume 92.2 fL (80-94); Mean Platelet Vol. 9.9 fl (6.2-12.0); NRBC Flagged by Analyzer 0 % (0-5); Platelet Count 254 K/mm3 (150-450); RBC Distribution Width CV 11.9 % (11.6-14.6); RBC Distribution Width SD 40.1 fl (35.1-43.9); Red Blood Count 4.73 M/mm3 (4.6-6.2); White Blood Count 6.0 K/mm3 (4.4-11.0)
[2025-09-08 16:37] LABS: AST(SGOT) 33 U/L (<=37); Alanine Aminotransfer ALT/SGPT 41 U/L (<=46); Albumin, Serum 4.5 g/dL (3.4-4.8); Alkaline Phosphatase 49 U/L (40-129); Anion Gap 11 (5-15); BUN 20 mg/dL (4-19); BUN/Creat Ratio 14.7 RATIO (10-20); Calcium,Total 9.3 mg/dL (7.6-11.0); Carbon Dioxide 25.5 mmol/L (21.0-32.0); Chloride 105 mmol/L (98-108); Cholesterol 181 mg/dL (<=200); Globulin 2.6 g/dL (2.2-4.2); Glucose 100 mg/dL (70-99); Low Density Lipoprotein Calc. 101 mg/dL; Potassium 4.0 mmol/L (3.3-5.1); Pro- Brain NATRIURETIC PEPTIDE 70 pg/mL (<=900); Triglycerides 169 mg/dL; Very Low Density Lipoprotein 34 mg/dL (5-40); cholesterol:hdl ratio screen 3.55
== END | disposition home or self-care (01) ==
LOC: LAB 15:19
PROVIDERS: Referring Provider Student in an Organized Health Care Education/Training Program; Visit Provider Student in an Organized Health Care Education/Training Program
DX: I10 Essential (primary) hypertension (principal); R07.2 Precordial pain; E78.00 Pure hypercholesterolemia, unspecified
CPT/HCPCS: 36415; 80053; 80061; 83880; 85025

== ENCOUNTER → 2025-09-10 | Outpatient (CLI) | payer OTHER, SELFPAY ==
--- NOTE | 2025-09-10 07:21 | ECHOD_ITS ---
Reason For Study ECHO/Echo Complete
--- NOTE | 2025-09-10 11:38 | STRESSREP_ITS ---
Stress Test Report
--- NOTE | 2025-09-10 11:38 | STRESSREP ---
Stress Test Report Date: 09/10/2025 Procedure: Exercise tolerance test/imaging study Indications: Chest pain/CAD Consent: Per the patient Procedure: The patient exercised on a Deepak protocol for 10 minutes achieving a peak heart rate of 150 bpm (93% predicted maximal heart rate) with a peak blood pressure 174/80 mmHg and a peak MET capacity of 13.4 METs. The baseline ECG demonstrated normal sinus rhythm. The peak exercise ECG showed sinus tachycardia with no ischemic changes. There were no cardiac dysrhythmias pretest, during exercise, or recovery. The functional capacity was considered excellent for age. There was no complaint of chest discomfort during exercise or recovery. The examination was discontinued secondary to target heart rate being achieved. The patient was injected with 15.0 mCi of technetium 99m Cardiolite and subsequently rest SPECT Cardiolite nuclear imaging was obtained in the horizontal long, vertical long, and short axis views. Post-exercise, the patient was injected with 44.4 mCi of technetium 99m Cardiolite and subsequently stress SPECT Cardiolite nuclear imaging was obtained in the horizontal long, vertical long, and short axis views. A gated Cardiolite study at peak stress was obtained. Rest and stress SPECT Cardiolite nuclear imaging status post realignment, normalization, and attenuation correction, demonstrates the appearance of relative uniform tracer uptake and myocardial perfusion appearing within normal limits. There is end systolic thickening and brightening. The gated Cardiolite study demonstrates myocardial thickening and inward wall motion. The reported LVEF is 72%. Impression: 1. Technically adequate (percent predicted maximal heart rate greater than 85%) exercise tolerance test 2. Peak exercise ECG with no ischemic changes at excellent workload. No chest pain reported. 3. There were no cardiac dysrhythmias pretest, during exercise, or recovery 4. Rest and stress SPECT Cardiolite nuclear imaging demonstrate relative uniform tracer uptake and myocardial perfusion appearing within normal limits. 5. The gated Cardiolite study reports an LVEF of 72%. This note was generated with [employer] software. It may contain incorrect words, spelling, and punctuation that were not noted in checking the note before signing.
== END | disposition home or self-care (01) ==
LOC: CVS 07:20
PROVIDERS: Referring Provider Student in an Organized Health Care Education/Training Program; Visit Provider Student in an Organized Health Care Education/Training Program
DX: R07.2 Precordial pain (principal); R06.09 Other forms of dyspnea
CPT/HCPCS: 78452; 93017; 93306; A9500

== ENCOUNTER → 2025-10-20 | Outpatient (CLI) | payer OTHER, SELFPAY ==
[2025-10-20 10:56] LABS: AST(SGOT) 30 U/L (<=37); Alanine Aminotransfer ALT/SGPT 33 U/L (<=46); Albumin, Serum 4.5 g/dL (3.4-4.8); Alkaline Phosphatase 51 U/L (40-129); Anion Gap 12 (5-15); BUN 20 mg/dL (4-19); BUN/Creat Ratio 14.3 RATIO (10-20); CPK Total, Creatine Kinase 361 U/L (24-195); Calcium,Total 9.6 mg/dL (7.6-11.0); Carbon Dioxide 24.0 mmol/L (21.0-32.0); Chloride 103 mmol/L (98-108); Cholesterol 131 mg/dL (<=200); Globulin 2.7 g/dL (2.2-4.2); Glucose 130 mg/dL (70-99); Low Density Lipoprotein Calc. 53 mg/dL; Potassium 3.5 mmol/L (3.3-5.1); Triglycerides 185 mg/dL; Very Low Density Lipoprotein 37 mg/dL (5-40); cholesterol:hdl ratio screen 2.76
== END | disposition home or self-care (01) ==
LOC: LAB 09:21
PROVIDERS: Referring Provider Internal Medicine Cardiovascular Disease; Visit Provider Internal Medicine Cardiovascular Disease
DX: I10 Essential (primary) hypertension (principal); E78.00 Pure hypercholesterolemia, unspecified; I25.10 Atherosclerotic heart disease of native coronary artery without angina pectoris; R07.2 Precordial pain
CPT/HCPCS: 36415; 80053; 80061; 82550